=== PATIENT | female | born 1960 | race African-American/Black ===

== ENCOUNTER 2022-06-12 14:47 | Emergency (ER) | payer SELFPAY ==
[~2022-06-12] VITALS: Ht 167.6 cm; Wt 100.0 kg
[2022-06-12 15:15] VITALS: BP 127/95
== END 2022-06-12 16:46 | disposition left against medical advice (07) ==
LOC: ER 14:47
DX: R05.9 Cough, unspecified (principal); R22.0 Localized swelling, mass and lump, head; H92.09 Otalgia, unspecified ear; Z20.822 Contact with and (suspected) exposure to COVID-19; Z53.21 Procedure and treatment not carried out due to patient leaving prior to being seen by health care provider
CPT/HCPCS: 36415; 87426; 87804

== ENCOUNTER 2024-04-02 13:25 | Inpatient (IN) | payer OTHER, MEDICAID ==
[~2024-04-02] VITALS: Ht 167.6 cm; Wt 110.4 kg
[2024-04-02 14:12] LABS: Basophils # (auto) 0 10 ^3/uL (0-0.2); Eosinophils # (auto) 0.1 10 ^3/uL (0-0.8); Eosinophils % (auto) 1.8 % (0.0-7.0); Hematocrit 42.4 % (36.0-46.0); Hemoglobin 14.5 g/dL (12.2-16.2); Lymphocytes # (auto) 1.6 10 ^3/uL (0.4-5.4); Lymphocytes % (auto) 39.9 % (10.0-50.0); Mean Corpuscular Hemoglobin 31.6 pg (28.0-32.0); Mean Corpuscular Hgb Conc. 34.3 g/dL (32.0-36.0); Mean Corpuscular Volume 92.1 fL (80.0-100.0); Monocytes # (auto) 0.4 10 ^3/uL (0-1.3); Monocytes % (auto) 9.6 % (0.0-12.0); Neutrophils # (auto) 1.9 10 ^3/uL (1.6-8.6); Neutrophils % (auto) 47.7 % (37.0-80.0); Nucleated Red Blood Cells % 0.1 %; Platelet Count (auto) 114 10^3/uL (140-450)
[2024-04-02 14:28] LABS: Alanine Aminotransferase 39 U/L (7-40); Albumin 4.1 g/dL (3.2-4.8); Alkaline Phosphatase 140 U/L (46-116); Anion Gap 8 (5-15); Aspartate Aminotransferase 46 U/L (13-40); Bilirubin, Total 0.7 mg/dL (0.2-1.0); Blood Urea Nitrogen 6 mg/dL (9-23); Calcium 9.9 mg/dL (8.7-10.4); Carbon Dioxide 26 mmol/L (20-31); Chloride 106 mmol/L (98-107); Glucose 231 mg/dL (74-106); INR 1.13 (0.9-1.15); Magnesium 1.7 mg/dL (1.6-2.6); Potassium 3.3 mmol/L (3.5-5.1); Prothrombin Time 11.9 sec (9.3-11.8); Sodium 140 mmol/L (136-145); Total Protein 7.6 g/dL (5.7-8.2)
[2024-04-02] MEDS: FAMOTIDINE (10MG/ML) 2ML VL IV ONE (18:09)
[2024-04-02] MEDS: ONDANSETRON HCL 4 MG/2 ML VIAL IV ONE (18:10)
[2024-04-02] MEDS: MORPHINE SULFATE 4 MG/ML SYR/VIAL IV ONE (18:10)
[2024-04-02] MEDS: hydrALAZINE HCL 20 MG/ML VL IV ONE (18:10)
[2024-04-02 18:44] VITALS: PULSE 88; RESP 19; O2SAT 97
[2024-04-02 19:45] VITALS: PULSE 84; RESP 16; O2SAT 98
[2024-04-02] MEDS ORDERED: ACETAMINOPHEN 325 MG TAB PO PRN (22:00)
[2024-04-02] MEDS ORDERED: DEXTROSE (50%) 50ML SYRG IV PRN (22:00)
[2024-04-02] MEDS ORDERED: HYDROcodone-ACET 5/325MG TAB PO PRN (22:00)
[2024-04-02] MEDS: ATORVASTATIN 20 MG TAB PO SCH (22:16)
[2024-04-02] MEDS: POTASSIUM CHL 20 Meq TABLET PO ONE (22:16)
[2024-04-02] MEDS: METOPROLOL TARTRATE 25 MG TAB PO SCH (22:17)
[2024-04-02] MEDS: ACCU-CHEK COMFORT CURVE STRIP VI SCH (22:17)
[2024-04-02] MEDS: SODIUM CHLOR 0.9% PF (SALINE LOCK) 10ML VIAL/SYR IV SCH (22:17)
[2024-04-02] MEDS: levETIRAcetam 1000 mg/100ml 100 ML IV ONE (22:17)
[2024-04-02] MEDS: InsuLIN REG 1unit/0.01ml Soln (100units/ml) SC SCH (22:26)
[2024-04-02] MEDS ORDERED: MORPHINE SULFATE INJ 2 MG/ml SYRG IV PRN (23:30)
[2024-04-02] MEDS ORDERED: NITROGLYCERIN 0.4 MG SL TAB SL PRN (23:30)
[2024-04-03] VITALS (8 sets, daily range): BP systolic 133–184; BP diastolic 72–89; PULSE 18–85; RESP 16–18; TEMP 98–98.2; O2SAT 96–100
[2024-04-03] MEDS: MORPHINE SULFATE INJ 2 MG/ml SYRG IV PRN (00:56)
[2024-04-03] MEDS: KETOROLAC TROMETH 30 MG/ML 1ML VIAL IV ONE (02:29)
[2024-04-03] MEDS ORDERED: OXY5T PO (02:32)
[2024-04-03 06:09] LABS: Basophils # (auto) 0 10 ^3/uL (0-0.2); Basophils % (auto) 0.7 % (0.0-2.0); Eosinophils # (auto) 0.1 10 ^3/uL (0-0.8); Eosinophils % (auto) 2.9 % (0.0-7.0); Hematocrit 38.9 % (36.0-46.0); Lymphocytes % (auto) 45.9 % (10.0-50.0); Mean Corpuscular Hemoglobin 31.2 pg (28.0-32.0); Mean Corpuscular Hgb Conc. 33.5 g/dL (32.0-36.0); Mean Corpuscular Volume 93.1 fL (80.0-100.0); Monocytes # (auto) 0.5 10 ^3/uL (0-1.3); Monocytes % (auto) 11.3 % (0.0-12.0); Neutrophils # (auto) 1.7 10 ^3/uL (1.6-8.6); Neutrophils % (auto) 39.2 % (37.0-80.0); Nucleated Red Blood Cells % 0.2 %; Platelet Count (auto) 108 10^3/uL (140-450); Red Blood Cells 4.18 10^6/uL (4.0-5.20); Red Cell Distribution Width 14.4 % (11.8-14.3); White Blood Cell 4.4 10^3/uL (4.4-10.8)
[2024-04-03 06:12] LABS: Alanine Aminotransferase 35 U/L (7-40); Albumin 3.6 g/dL (3.2-4.8); Alkaline Phosphatase 102 U/L (46-116); Anion Gap 7 (5-15); Aspartate Aminotransferase 46 U/L (13-40); BUN/Creatinine Ratio 9.1 (10.0-20.0); Bilirubin, Total 1.2 mg/dL (0.2-1.0); Blood Urea Nitrogen 6 mg/dL (9-23); Calcium 9.3 mg/dL (8.7-10.4); Carbon Dioxide 26 mmol/L (20-31); Chloride 106 mmol/L (98-107); Glucose 141 mg/dL (74-106); Potassium 3.7 mmol/L (3.5-5.1); Sodium 139 mmol/L (136-145); Total Protein 6.6 g/dL (5.7-8.2)
[2024-04-03] MEDS: InsuLIN REG 1unit/0.01ml Soln (100units/ml) SC SCH (07:00)
[2024-04-03] MEDS: levETIRAcetam 1000 mg/100ml 100 ML IV SCH (10:16)
[2024-04-03] MEDS: FAMOTIDINE (10MG/ML) 2ML VL IV SCH (10:16)
[2024-04-03] MEDS: ASPirin 81 mg TAB PO SCH (10:16)
[2024-04-03] MEDS: hydrALAZINE HCL 20 MG/ML VL IV PRN (11:15)
[2024-04-03] MEDS: DOCUSATE SOD 100 MG CAP PO PRN (13:09)
[2024-04-03] MEDS: OXYCODONE W/ ACETAMINOPHEN 5/325MG TABLET PO PRN (13:10)
[2024-04-03 13:33] LABS: Urine Bacteria None Seen /hpf (None Seen)
[2024-04-03 14:07] LABS: Urine Blood Negative /uL (Negative); Urine Clarity Turbid (Clear); Urine Color Yellow (Yellow); Urine Hyaline Cast FEW /lpf (0 - 2); Urine Mucus FEW (None Seen); Urine Protein, UAD 1+ (Negative); Urine Specific Gravity 1.031 (1.001-1.035); Urine Urobilinogen Normal (Negative); Urine WBC 45 /hpf (0 - 5); Urine pH 5.5 (5.0-9.0)
[2024-04-03] MEDS ORDERED: ROPINIROLE 1 MG PO PRN (16:00)
[2024-04-03 17:04] LABS: Basophils # (auto) 0.1 10 ^3/uL (0-0.2); Basophils % (auto) 1.4 % (0.0-2.0); Eosinophils # (auto) 0.2 10 ^3/uL (0-0.8); Hematocrit 39.6 % (36.0-46.0); Hemoglobin 13.1 g/dL (12.2-16.2); Lymphocytes # (auto) 1.8 10 ^3/uL (0.4-5.4); Lymphocytes % (auto) 45.4 % (10.0-50.0); Mean Corpuscular Hemoglobin 30.4 pg (28.0-32.0); Mean Corpuscular Hgb Conc. 33.1 g/dL (32.0-36.0); Mean Corpuscular Volume 91.7 fL (80.0-100.0); Monocytes # (auto) 0.4 10 ^3/uL (0-1.3); Monocytes % (auto) 10.9 % (0.0-12.0); Neutrophils # (auto) 1.5 10 ^3/uL (1.6-8.6); Neutrophils % (auto) 38.3 % (37.0-80.0); Nucleated Red Blood Cells % 0.3 %; Platelet Count (auto) 117 10^3/uL (140-450); Red Blood Cells 4.31 10^6/uL (4.0-5.20); Red Cell Distribution Width 14.6 % (11.8-14.3)
[2024-04-03 17:17] LABS: INR 1.13 (0.9-1.15); Partial Thromboplastin Time 26.8 SEC (24.5-34.5); Prothrombin Time 11.9 sec (9.3-11.8)
[2024-04-03] MEDS ORDERED: DULA4.5I SC (17:25)
[2024-04-03] MEDS ORDERED: CLON0.1T PO (17:25)
[2024-04-03] MEDS ORDERED: LOS25T PO (17:25)
[2024-04-03] MEDS ORDERED: INSU1INJ15 SC (17:25)
[2024-04-03] MEDS ORDERED: ISOS1TAB28 PO (17:25)
[2024-04-03] MEDS ORDERED: ASPI1CHW5 PO (17:25)
[2024-04-03] MEDS ORDERED: LEVE100020 PO (17:25)
[2024-04-03] MEDS ORDERED: ATOR40TA52 PO (17:25)
[2024-04-03] MEDS ORDERED: METF-1145 PO (17:25)
[2024-04-03] MEDS ORDERED: HYDR25TA87 PO (17:25)
[2024-04-03] MEDS ORDERED: ROPI1TAB78 PO (17:25)
[2024-04-03] MEDS: CLOPIDOGREL BISULFATE 75 MG TAB PO ONE (17:34)
[2024-04-03] MEDS ORDERED: ZOLP10TA6 PO (17:52)
[2024-04-03] MEDS ORDERED: METF-489 PO (17:52)
[2024-04-03] MEDS: HEPARIN SODIUM (PORCINE) 5000 UNITS/ML 1ML VIAL IV ONE (18:21)
[2024-04-03] MEDS: HEPARIN DRIP/D5W 100UNITS/ML 250 ML IV SCH (18:35)
[2024-04-03 23:01] LABS: INR 1.13 (0.9-1.15); Partial Thromboplastin Time 26.1 SEC (24.5-34.5); Prothrombin Time 11.9 sec (9.3-11.8)
[2024-04-04] VITALS (9 sets, daily range): BP systolic 131–173; BP diastolic 62–80; PULSE 60–82; RESP 16–18; TEMP 97.6–99.1; O2SAT 89–98
[2024-04-04] MEDS: cefTRIAXone 1GM/50ML D5W 50 ML IV ONE (06:49)
[2024-04-04] MEDS ORDERED: CLOPIDOGREL BISULFATE 75 MG TAB PO SCH (10:00)
[2024-04-04] MEDS: levETIRAcetam 500 MG TAB PO SCH (10:30)
[2024-04-04] MEDS: hydrALAZINE HCL 20 MG/ML VL IV PRN (10:32)
[2024-04-04] MEDS: CLOPIDOGREL BISULFATE 75 MG TAB PO ONE (10:40)
[2024-04-04] MEDS: LORazepam 2MG/ML-1ML VIAL IM ONE (12:15)
[2024-04-04] MEDS: LORazepam 2MG/ML-1ML VIAL IV ONE (12:52)
[2024-04-04 12:59] LABS: Basophils # (auto) 0 10 ^3/uL (0-0.2); Basophils % (auto) 0.7 % (0.0-2.0); Eosinophils # (auto) 0.1 10 ^3/uL (0-0.8); Eosinophils % (auto) 3.2 % (0.0-7.0); Hematocrit 42.5 % (36.0-46.0); Hemoglobin 13.9 g/dL (12.2-16.2); Lymphocytes # (auto) 1.2 10 ^3/uL (0.4-5.4); Lymphocytes % (auto) 28.7 % (10.0-50.0); Mean Corpuscular Hemoglobin 30.3 pg (28.0-32.0); Mean Corpuscular Hgb Conc. 32.7 g/dL (32.0-36.0); Mean Corpuscular Volume 92.8 fL (80.0-100.0); Monocytes # (auto) 0.5 10 ^3/uL (0-1.3); Monocytes % (auto) 12.3 % (0.0-12.0); Neutrophils # (auto) 2.4 10 ^3/uL (1.6-8.6); Neutrophils % (auto) 55.1 % (37.0-80.0); Nucleated Red Blood Cells % 0.4 %; Platelet Count (auto) 122 10^3/uL (140-450); Red Blood Cells 4.58 10^6/uL (4.0-5.20); Red Cell Distribution Width 14.2 % (11.8-14.3); White Blood Cell 4.3 10^3/uL (4.4-10.8)
[2024-04-04 13:35] LABS: Erythrocyte Sedimentation Rate 17 mm/hr (0-20)
[2024-04-04] MEDS: NIFEdipine ER 30 MG TAB PO ONE (15:10)
[2024-04-04] MEDS ORDERED: cefTRIAXone 1GM/50ML D5W 50 ML IV SCH (21:00)
[2024-04-04] MEDS: ATORVASTATIN 20 MG TAB PO SCH (21:48)
[2024-04-04] MEDS: LABETALOL HCL 200 MG TAB PO ONE (22:10)
[2024-04-05] VITALS (10 sets, daily range): BP systolic 109–144; BP diastolic 54–77; PULSE 64–80; RESP 16–20; TEMP 97.9–98.9; O2SAT 94–98
[2024-04-05] MEDS: LABETALOL HCL 200 MG TAB PO SCH (06:00)
[2024-04-05] MEDS: CLOPIDOGREL BISULFATE 75 MG TAB PO SCH (10:21)
[2024-04-05] MEDS: NIFEdipine ER 30 MG TAB PO SCH (10:22)
[2024-04-05 16:52] LABS: LDL Cholesterol 51 mg/dL (< 100); Triglycerides 156 mg/dL (< 150)
[2024-04-05 16:54] LABS: Cholesterol 116 mg/dL (< 200); HDL Cholesterol 42 mg/dL (40-59)
[2024-04-05] MEDS: ONDANSETRON HCL 4 MG/2 ML VIAL IV PRN (21:45)
[2024-04-06 00:59] VITALS: BP 128/56; PULSE 68; RESP 20; TEMP 98; O2SAT 91
[2024-04-06 05:00] VITALS: BP 127/63; PULSE 64; RESP 20; TEMP 98.5; O2SAT 91
[2024-04-06] MEDS ORDERED: LABE200T10 PO (07:28)
[2024-04-06] MEDS ORDERED: NIFE1TAB31 PO (07:28)
[2024-04-06 07:30] VITALS: PULSE 73
[2024-04-06 09:00] VITALS: BP 103/44; PULSE 61; RESP 18; TEMP 97.8; O2SAT 98
[2024-04-06] MEDS ORDERED: HYDR25TA87 PO (10:27)
== END 2024-04-06 12:24 | disposition home or self-care (01) | DRG 305 ==
LOC: ER 13:39 → TELE 23:31 → TELE-WESTW 23:31
PROVIDERS: ADMIT Nurse Practitioner Family; ATTEND Student in an Organized Health Care Education/Training Program
PROC: 5A09357 Assistance with Respiratory Ventilation, Less than 24 Consecutive Hours, Continuous Positive Airway Pressure (ICD-10-PCS; principal; 2024-04-03)
DX: I16.0 Hypertensive urgency (principal); G81.94 Hemiplegia, unspecified affecting left nondominant side; E11.65 Type 2 diabetes mellitus with hyperglycemia; E78.5 Hyperlipidemia, unspecified; E87.6 Hypokalemia; G44.209 Tension-type headache, unspecified, not intractable; K74.60 Unspecified cirrhosis of liver; G40.909 Epilepsy, unspecified, not intractable, without status epilepticus; J44.9 Chronic obstructive pulmonary disease, unspecified; E66.01 Morbid (severe) obesity due to excess calories; I25.10 Atherosclerotic heart disease of native coronary artery without angina pectoris; G47.30 Sleep apnea, unspecified; D86.9 Sarcoidosis, unspecified; G43.809 Other migraine, not intractable, without status migrainosus; F17.200 Nicotine dependence, unspecified, uncomplicated; Z86.73 Personal history of transient ischemic attack (TIA), and cerebral infarction without residual deficits; Z79.82 Long term (current) use of aspirin; Z79.84 Long term (current) use of oral hypoglycemic drugs; Z79.899 Other long term (current) drug therapy; Z88.0 Allergy status to penicillin; Z91.041 Radiographic dye allergy status; Z82.49 Family history of ischemic heart disease and other diseases of the circulatory system; Z85.3 Personal history of malignant neoplasm of breast; Z90.710 Acquired absence of both cervix and uterus; Z88.8 Allergy status to other drugs, medicaments and biological substances; Z79.4 Long term (current) use of insulin; Z68.38 Body mass index [BMI] 38.0-38.9, adult
CPT/HCPCS: 36415; 70450; 70551; 71045; 80053; 80061; 81001; 82962; 83036; 83735; 83880; 84484; 85025; 85610; 85652; 85730; 93005; 93306; 93886; 94660; 97163; G0378; J1815; J1885; J2405; J3490

== ENCOUNTER 2024-05-27 14:34 | Emergency (ER) | payer MEDICARE, MEDICAID ==
[~2024-05-27] VITALS: Ht 162.6 cm; Wt 100.0 kg
[~2024-05-27 14:34] MED LIST: ASPI1CHW5 PO; ATOR40TA52 PO; DULA4.5I SC; HYDR25TA87 PO; INSU1INJ15 SC; ISOS1TAB28 PO; LABE200T10 PO; LEVE100020 PO; METF-489 PO; NIFE1TAB31 PO; OXY5T PO; ROPI1TAB78 PO; ZOLP10TA6 PO
[2024-05-27 16:05] VITALS: PULSE 64; RESP 16; O2SAT 96
[2024-05-27] MEDS: levETIRAcetam 1000 mg/100ml 100 ML IV ONE (16:06)
[2024-05-27 16:09] LABS: Basophils # (auto) 0.1 10 ^3/uL (0-0.2); Eosinophils # (auto) 0.1 10 ^3/uL (0-0.8); Eosinophils % (auto) 1.5 % (0.0-7.0); Hematocrit 43.6 % (36.0-46.0); Hemoglobin 14.5 g/dL (12.2-16.2); Lymphocytes # (auto) 1.9 10 ^3/uL (0.4-5.4); Lymphocytes % (auto) 35.1 % (10.0-50.0); Mean Corpuscular Hemoglobin 30.4 pg (28.0-32.0); Mean Corpuscular Hgb Conc. 33.3 g/dL (32.0-36.0); Mean Corpuscular Volume 91.3 fL (80.0-100.0); Monocytes # (auto) 0.6 10 ^3/uL (0-1.3); Neutrophils # (auto) 2.7 10 ^3/uL (1.6-8.6); Neutrophils % (auto) 51.4 % (37.0-80.0); Nucleated Red Blood Cells % 0.2 %; Platelet Count (auto) 125 10^3/uL (140-450); Red Blood Cells 4.77 10^6/uL (4.0-5.20); Red Cell Distribution Width 14.3 % (11.8-14.3); White Blood Cell 5.3 10^3/uL (4.4-10.8)
[2024-05-27] MEDS: ONDANSETRON HCL 4 MG/2 ML VIAL IV ONE (16:10)
[2024-05-27] MEDS: MORPHINE SULFATE 4 MG/ML SYR/VIAL IV ONE (16:11)
[2024-05-27 16:18] LABS: Sodium 143 mmol/L (136-145)
[2024-05-27 16:19] LABS: Anion Gap 6 (5-15); Calcium 10.2 mg/dL (8.7-10.4); Carbon Dioxide 29 mmol/L (20-31)
[2024-05-27 16:24] LABS: BUN/Creatinine Ratio 12.2 (10.0-20.0)
[2024-05-27 16:25] LABS: Blood Urea Nitrogen 9 mg/dL (9-23); Chloride 108 mmol/L (98-107); Glucose 121 mg/dL (74-106); Potassium 3.3 mmol/L (3.5-5.1)
--- NOTE | 2024-05-27 16:48 | DVH ---
EXAM: CT HEAD WITHOUT CONTRAST HISTORY: hearn COMPARISON: MRI BRAIN HEAD WO CONTRAST on DOS: 04/04/24, CT HEAD WITHOUT CONTRAST on DOS: 04/03/24 TECHNIQUE: Axial images of the head were obtained and reformatted in coronal and sagittal planes. All CT scans at this medical facility are performed using dose modulation techniques as appropriate t o a performed exam including the following: Automated exposure control was utilized; adjustment of th e MA and/or KV according to patient size; and use of iterative reconstruction technique. CT Dose: CTDI volume is 54 mGy. Dose-length product is 864 mGy*cm FINDINGS: There is no evidence of acute intracranial hemorrhage, mass, mass effect midline shift. There is no h ydrocephalus or extra-axial fluid collection. Read-white matter differentiation is maintained.. The visualized paranasal sinuses and mastoid air cells are clear. The calvarium is intact. IMPRESSION: 1. No acute intracranial process. HS:Y
[2024-05-27] MEDS: oxyCODONE ER 10 MG TAB PO ONE (17:41)
[2024-05-27] MEDS: cloNIDine HCL 0.1 MG TAB PO ONE (17:42)
--- NOTE | 2024-05-27 18:10 | ED.PDOC ---
History of Present Illness HPI Comments 64-year-old female who comes in with chief complaint of seizure today. The patient has a history of seizures and states that her last seizure was January of this year. The patient currently does not have a neurologist but does have a primary care doctor. She states that today the seizure was tonic-clonic in nature and lasted approximately 3 minutes. The patient was postictal for approximately 15 minutes and upon being transported to our facility, the patient was now alert and oriented and able to answer all questions. The patient had the seizure in a wheelchair so there was no type of trauma. She did come in with a headache and states that the headache is about a 9/10. She denies any nausea vomiting or diarrhea. We did speak with her primary care doctor who said that the patient has been somewhat hypertensive over the past several weeks. The patient's blood pressure was 212/120 at the facility that she came from. The patient was accompanied in the emergency department's by her . Chief Complaint: Seizure Time Seen by MD: 15:16 Primary Care Provider: Arabella Reviewed Notes: Nurses Notes, Police Patrol Officer Notes, Medications, Allergies (Allergies listed above) Allergies: Coded Allergies: Iodine (Verified Allergy, Severe, 04/02/24) Penicillins (Verified Allergy, Intermediate, Hives, 04/03/24) Acetaminophen (Verified Allergy, Unknown, 05/27/24) Uncoded Allergies: CONTRAST (Allergy, Severe, 04/02/24) Home Meds Active Scripts Hydralazine HCl (Hydralazine HCl) 25 Mg Tab, 1 TAB PO TIDPRN PRN for 30 Days, #90 TAB take sBP>170 Prov:ROBERT BOLTON MD 04/06/24 Nifedipine (Nifedipine Er) 30 Mg Tab, 60 MG PO DAILY for 60 Days, #120 TAB Prov:ROBERT BOLTON MD 04/06/24 Labetalol HCl (Labetalol HCl) 200 Mg Tab, 200 MG PO TID for 60 Days, #180 TAB Prov:ROBERT BOLTON MD 04/06/24 Reported Medications Zolpidem Tartrate (Zolpidem Tartrate) 10 Mg Tab, 10 MG PO HS PRN for FOR INSOMNIA, TAB 04/03/24 Metformin Hydrochloride (METFORMIN HCL ER) 500 Mg Tab, 500 MG PO DAILY@DINNER, TAB 04/03/24 Isosorbide Mononitrate (Isosorbide Mononitrate Er) 30 Mg Tab, 1 TAB PO DAILY 04/03/24 Ropinirole Hydrochloride (Ropinirole Hcl) 1 Mg Tab, 1 TAB PO QPM 04/03/24 Insulin Regular (Human) (Humulin R U-500 Kwikpen) 500 Unit/Ml Inj, SC 04/03/24 Atorvastatin Calcium (ATORVASTATIN CALCIUM) 40 Mg Tab, 1 TAB PO DAILY 04/03/24 Levetiracetam (Levetiracetam) 1,000 Mg Tab, 1 TAB PO BID 04/03/24 Aspirin (Chewable Aspirin) 81 Mg Chw, 1 TAB PO DAILY 04/03/24 Dulaglutide (Trulicity) 4.5 Mg/0.5 Ml Inj, 4.5 MG SC QWEEKLY 04/03/24 Oxycodone Hcl (OXYCODONE HCL) 5 Mg Tb, 10 MG PO TID PRN for PAIN SCALE 1 THRU 6, TAB 04/03/24 Information Source: Patient, Emergency Med Personnel Mode of Arrival: EMS Severity: Moderate Timing: Minutes Duration: Intermittent Prehospital treatment: Licensed Acupuncturist, IVF Location: Generalized headache Past Medical History PAST MEDICAL HISTORY: Cancer (History of breast cancer), CHF, COPD, CVA, DM, HTN, CA, Seizures Past Medical History (Other): Bone dysplasia, sleep apnea, sarcoidosis, fibromuscular dysplasia Surgical History: , Hysterectomy Surgical History (Other): Left breast removal from cancer RANCH HELPER History: Denies all RANCH HELPER Hx Family History Family History: Family hx of Cancer, Family hx of heart johnny Social History Smoker: Non-Smoker Alcohol: Denies ETOH Use Drugs: Marijuana Lives In: Home Constitutional: denies: chills, diaphoresis, fatigue, fever, malaise, sweats, weakness, others Respiratory: denies: cough, hemoptysis, orthopnea, SOB at rest, shortness of breath, SOB with excertion, stridor, wheezing, others Cardiovascular: denies: chest pain, dizzy spells, diaphoresis, Dyspnea on exertion, edema, irregular heart beat, left arm pain, lightheadedness, palpita tions, PND, syncope, others Gastrointestinal: denies: abdomen distended, abdominal pain, blood streaked jelly wels, constipated, diarrhea, dysphagia, difficulty swallowing, hematemesis, melena, nausea, poor appetite, poor fluid intake, rectal bleeding, rectal pain, vomiting, others Genitourinary: denies: abnormal vagina bleeding, burning, dyspareunia, dysuria, flank pain, frequency, hematuria, incontinence, pain, , vagina discharge, urgency, others Neurological: reports: headache, seizure; denies: dizziness, fainting, left sided numbness, left sided weakness, numbness, paresthesia, pre-existing deficit, right sided numbness, right sided weakness, speech problems, tingling, tremors, weakness, others Musculoskeletal: denies: back pain, gout, joint pain, joint swelling, muscle pain, muscle stiffness, neck pain, others Integumetry: denies: bruises, change in color, change in hair/nails, dryness, laceration, lesions, lumps, rash, wounds, others Allergic/Immunocompromised: denies: Difficulty Healing, Frequent Infections, Hives, Itching, others Hematologic/Lymphatic: denies: anemia, blood clots, easy bleeding, easy bruising, swollen glands, others Endocrine: denies: excessive hunger, excessive sweating, excessive thirst, excessive urination, flushing, intolerance to cold, intolerance to heat, unexpla ined weight gain, unexplained weight loss, others Psychiatric: denies: anxiety, bipolar disorder, depression, hopeless, panic disorder, schizophrenia, sleepless, suicidal, others Physical Exam General Appearance: Mild Distress HEENT: Normal ENT Inspection, Pharynx Normal, TMs Normal Neck: Full Range of Motion, Non-Tender, Normal, Normal Inspection Respiratory: Chest Non-Tender, Lungs Clear, No Accessory Muscle Use, No Respiratory Distress, Normal Breath Sounds Cardiovascular: No Edema, No JVD, No Murmur, No Gallop, Normal Peripheral Pulses, Regular Rate/Rhythm Breast Exam: Deferred Gastrointestinal: No Organomegaly, Non Tender, No Pulsatile Mass, Normal Bowel Sounds, Soft Genitalia: Deferred Pelvic: Deferred Rectal: Deferred Extremities: No calf tenderness, Normal capillary refill, No pedal edema Musculoskeletal : Apperance: Normal Neurologic: Alert, inspector aligning II-XII nml as Tested, Motor Weakness, Normal Affect, Normal Mood, No Sensory Deficits Cerebellar Function: Normal Reflexes: Normal Skin: Dry, Normal Color, Warm Lymphatic: No Adenopathy Was a procedure done? Was a procedure done?: No Differential Dx Considerations may include: Generalized weakness, seizures, generalized weakness, sepsis, UTI X-Ray, Labs, Meds, VS Vital Signs Date Time Temp Pulse Resp B/P (MAP) Pulse Ox O2 Delivery O2 Flow Rate FiO2 05/27/24 17:42 190/88 05/27/24 17:32 64 18 190/88 05/27/24 16:11 73 12 20389 05/27/24 16:11 73 12 (127) 96 05/27/24 16:05 64 16 96 Room Air* 0 21 05/27/24 14:34 98.1 71 16 201/98 (132) 97 98.1 05/27/24 14:34 98.1 71 16 201/98 (132) 97 Lab Test 05/27/24 15:54 Range/Units White Blood Count 5.3 4.4-10.8 10^3/uL Red Blood Count 4.77 4.0-5.20 10^6/uL Hemoglobin 14.5 12.2-16.2 g/dL Hematocrit 43.6 36.0-46.0 % Mean Corpuscular Volume 91.3 80.0-100.0 fL Mean Corpuscular Hemoglobin 30.4 28.0-32.0 pg Mean Corpuscular Hemoglobin Concent 33.3 32.0-36.0 g/dL Red Cell Distribution Width 14.3 11.8-14.3 % Platelet Count 125 L 140-450 10^3/uL Mean Platelet Volume 10.1 6.9-10.8 fL Neutrophils (%) (Auto) 51.4 37.0-80.0 % Lymphocytes (%) (Auto) 35.1 10.0-50.0 % Monocytes (%) (Auto) 11.0 0.0-12.0 % Eosinophils (%) (Auto) 1.5 0.0-7.0 % Basophils (%) (Auto) 1.0 0.0-2.0 % Neutrophils # (Auto) 2.7 1.6-8.6 10 ^3/uL Lymphocytes # (Auto) 1.9 0.4-5.4 10 ^3/uL Monocytes # (Auto) 0.6 0-1.3 10 ^3/uL Eosinophils # (Auto) 0.1 0-0.8 10 ^3/uL Basophils # (Auto) 0.1 0-0.2 10 ^3/uL Nucleated Red Blood Cells 0.2 % Sodium Level 143 136-145 mmol/L Potassium Level 3.3 L 3.5-5.1 mmol/L Chloride Level 108 H 98-107 mmol/L Carbon Dioxide Level 29 20-31 mmol/L Anion Gap 6 5-15 Blood Urea Nitrogen 9 9-23 mg/dL Creatinine 0.74 0.550-1.02 mg/dL Glomerular Filtration Rate Calc 89 >90 mL/min BUN/Creatinine Ratio 12.2 10.0-20.0 Serum Glucose 121 H 74-106 mg/dL Calcium Level 10.2 8.7-10.4 mg/dL Magnesium Level 1.9 1.6-2.6 mg/dL Current Medications Medications (Trade) Dose Ordered Sig/Maycol Route Start Time Stop Time Status Last Admin Morphine Sulfate 4 mg ONCE ONCE IV 05/27/24 15:45 05/27/24 15:46 DC 05/27/24 16:11 Ondansetron HCl (Zofran) 4 mg ONCE ONCE IV 05/27/24 15:45 05/27/24 15:46 DC 05/27/24 16:10 Levetiracetam 100 ml @ 400 mls/hr ONCE ONCE IV 05/27/24 15:45 05/27/24 15:59 DC 05/27/24 16:06 Oxycodone HCl (OxyCONTIN ER Tablet) 10 mg ONCE ONCE PO 05/27/24 17:30 05/27/24 17:32 DC 05/27/24 17:41 Clonidine HCl (Catapres Tablet) 0.1 mg ONCE ONCE PO 05/27/24 17:45 05/27/24 17:46 DC 05/27/24 17:42 CT scan of the head is negative Given morphine 4 mg IV push for the pain The patient was given Zofran for the nausea The patient states that the pain is persistent so we did give her oxycodone The patient was given Keppra 1 g IV piggyback The patient's blood pressure was still somewhat elevated so was given clonidine 0.1 mg by mouth The patient's CBC and chemistry panel are within normal limits. The patient's blood pressure has somewhat decreased so we are going to discharge the patient We did speak with her primary care doctor (Dr. Lane) and he was going to set her up with a neurology appointment. Images Reviewed?: Images reviewed and evaluated by me Time of 1ST Reevaluation: 18:08 Reevaluation 1ST: Improved Patient Education/Counseling: Diagnosis, Treatment, Prognosis, Need For Follow Up Family Education/Counseling: Diagnosis, Treatment, Prognosis, Need For Follow Up Departure 1 Departure Time of Disposition: 18:09 Impression: Primary Impression: Seizure Disposition: 01 HOME / SELF CARE / HOMELESS Condition: Fair Discharged With: Self Critical Care Note Critical Care Time?: No Stability Stability form required: No Heart Score Heart Score: Heart Score Response (Comments) Value History N/A 0 EKG N/A 0 Age N/A 0 Risk Factors N/A 0 Troponin N/A 0 Total 0 ALIZE MANN MD May 27, 2024 18:10
[2024-05-27 18:57] VITALS: BP 163/70; PULSE 82; RESP 15; TEMP 98.6; O2SAT 94
== END 2024-05-27 19:37 | disposition home or self-care (01) ==
LOC: EDBD 14:34 → EDUNIT# 14:34 → ER 14:34
DX: R56.9 Unspecified convulsions (principal); I11.0 Hypertensive heart disease with heart failure; I50.9 Heart failure, unspecified; F12.10 Cannabis abuse, uncomplicated; E11.9 Type 2 diabetes mellitus without complications; J44.9 Chronic obstructive pulmonary disease, unspecified; Z90.710 Acquired absence of both cervix and uterus; Z79.82 Long term (current) use of aspirin; Z79.84 Long term (current) use of oral hypoglycemic drugs; Z79.85 Long-term (current) use of injectable non-insulin antidiabetic drugs; Z79.899 Other long term (current) drug therapy; Z85.3 Personal history of malignant neoplasm of breast; Z86.73 Personal history of transient ischemic attack (TIA), and cerebral infarction without residual deficits; Z88.0 Allergy status to penicillin; Z88.8 Allergy status to other drugs, medicaments and biological substances; Z91.041 Radiographic dye allergy status
CPT/HCPCS: 36415; 70450; 80048; 83735; 85025; 96365; 96375; 99285; J1953; J2270; J2405

== ENCOUNTER 2024-06-01 14:11 | Emergency (ER) | payer MEDICARE, MEDICAID ==
[~2024-06-01] VITALS: Ht 167.6 cm; Wt 100.0 kg
--- NOTE | 2024-06-01 15:13 | DVH ---
Chest x-ray Technique: AP view Comparison: 04/02/2020 CLINICAL INDICATION: Shortness of breath FINDINGS: Heart size borderline with left ventricular configuration. Aorta tortuous. No infiltrates or effusions. IMPRESSION: 1. No acute infiltrates
--- NOTE | 2024-06-01 15:21 | DVH ---
CLINICAL INFORMATION: 64 years old, Female; low back pain. Rule out discitis/osteomyelitis. TECHNIQUE: Axial CT images of the lumbar spine were obtained without IV contrast. Coronal and sagitt al reformatted images were obtained, reviewed, and stored. One or more of the following dose reducti on techniques were used: Automated exposure control. Adjustment of mA and/or kV according to patient size. CTDIvol = 38.87, 0.41, 0.07 mGy DLP = 1153.54 right mGy-cm COMPARISON: None. FINDINGS: Vertebral body alignment is within normal limits. Vertebral body heights are maintained. Posterior el ements are intact. No acute fracture. Paraspinal soft tissues are unremarkable. 4 mm nonobstructing calculus incidentally noted in the inferior pole of the right kidney. Lumbar disc levels: L1-L2: No significant disc/facet abnormality. No significant spinal canal or neural foraminal stenosi s. L2-L3: No significant disc abnormality or spinal canal stenosis. Facet hypertrophy with [id number] ate bilateral neural foraminal stenoses. L3-L4: Posterior disc osteophyte complex causes moderate spinal canal stenosis. Facet hypertrophy wit h severe right moderate to severe left neural foraminal stenoses. Encroachment of the right neural fo ramen by right foraminal disc protrusion contributes to the right neural foraminal stenosis. There is calcification associated with the disc protrusion. L4-L5: Diffuse disc bulge mildly indenting the ventral aspect of the thecal sac. Mild spinal canal st enosis. Facet hypertrophy with moderate to severe bilateral neural foraminal stenoses. L5-S1: Mild disc space narrowing. No significant disc bulge or spinal canal stenosis. Facet hypertro phy with moderate bilateral neural foraminal stenoses. IMPRESSION: 1. No evidence of acute fracture or spondylolisthesis. 2. No findings are seen to suggest discitis/ osteomyelitis on CT. If there is clinical concern for di scitis/osteomyelitis, MRI could be obtained. 3. Degenerative disc disease and facet disease in the lumbar spine with associated spinal canal, suba rticular, and neural foraminal stenoses as detailed above. 4. Additional findings as described above
[2024-06-01 15:32] LABS: Chloride 104 mmol/L (98-107); Potassium 3.5 mmol/L (3.5-5.1); Sodium 138 mmol/L (136-145)
[2024-06-01 15:33] LABS: Anion Gap 7 (5-15); Calcium 10.2 mg/dL (8.7-10.4); Carbon Dioxide 27 mmol/L (20-31)
[2024-06-01 15:37] LABS: Uric Acid 3.6 mg/dL (3.1-7.8)
[2024-06-01 15:38] LABS: BUN/Creatinine Ratio 9.7 (10.0-20.0)
[2024-06-01 15:40] LABS: Blood Urea Nitrogen 6 mg/dL (9-23); Glucose 136 mg/dL (74-106)
--- NOTE | 2024-06-01 15:50 | DVH ---
Left lower extremity venous duplex Clinical History: L calf pain Comparison: None Technique: Duplex Doppler evaluation of the deep venous system of the left lower extremity from the c ommon femoral vein to the popliteal vein including color Doppler and spectral/pulsed waveform analysi s was performed. Findings: The common femoral vein demonstrates appropriate compressibility and waveform variability. There is compressibility/patency of the great saphenous vein at the proximal thigh. The femoral vein demonstrates appropriate compressibility and waveform variability. The deep femoral vein demonstrates appropriate compressibility and waveform variability. The popliteal vein demonstrates appropriate compressibility and waveform variability. There is normal compressibility at the tibioperoneal trunk. Impression: 1. No left femoropopliteal venous thrombosis. 2. If clinical concern/symptoms persist or worsen, short-interval follow-up study is suggested. HS:Y
[2024-06-01 16:00] LABS: Basophils # (auto) 0.1 10 ^3/uL (0-0.2); Basophils % (auto) 1.1 % (0.0-2.0); Eosinophils # (auto) 0.1 10 ^3/uL (0-0.8); Eosinophils % (auto) 2.2 % (0.0-7.0); Erythrocyte Sedimentation Rate 33 mm/hr (0-20); Hematocrit 41.9 % (36.0-46.0); Hemoglobin 14.1 g/dL (12.2-16.2); Lymphocytes % (auto) 39.1 % (10.0-50.0); Mean Corpuscular Hemoglobin 30.8 pg (28.0-32.0); Mean Corpuscular Hgb Conc. 33.7 g/dL (32.0-36.0); Mean Corpuscular Volume 91.4 fL (80.0-100.0); Monocytes # (auto) 0.5 10 ^3/uL (0-1.3); Monocytes % (auto) 10.6 % (0.0-12.0); Neutrophils # (auto) 2.4 10 ^3/uL (1.6-8.6); Nucleated Red Blood Cells % 0.1 %; Platelet Count (auto) 133 10^3/uL (140-450); Red Blood Cells 4.58 10^6/uL (4.0-5.20); Red Cell Distribution Width 14.5 % (11.8-14.3); White Blood Cell 5.2 10^3/uL (4.4-10.8)
[2024-06-01] MEDS: ONDANSETRON HCL 4 MG/2 ML VIAL IV ONE (16:10)
[2024-06-01] MEDS: MORPHINE SULFATE 4 MG/ML SYR/VIAL IV ONE (16:10)
[2024-06-01 16:16] VITALS: PULSE 79; RESP 17; O2SAT 96
[2024-06-01 17:11] LABS: Urine Bacteria None Seen /hpf (None Seen)
[2024-06-01 17:32] LABS: Urine Blood Negative /uL (Negative); Urine Clarity Clear (Clear); Urine Color Light-Yellow (Yellow); Urine Protein, UAD Negative (Negative); Urine Specific Gravity 1.013 (1.001-1.035); Urine Urobilinogen Normal (Negative); Urine WBC 3 /hpf (0 - 5)
[2024-06-01] MEDS ORDERED: HYDROmorphone HCL 2 MG/ML VL/or syr IV ONE (18:15)
[2024-06-01] MEDS ORDERED: DexAMETHasone SOD PHOS 10MG/1ML VIAL INJ IV ONE (18:15)
--- NOTE | 2024-06-01 18:25 | ED.PDOC ---
History of Present Illness HPI Comments 64 year old female presents to the ED with chief complaint of back pain and fever. Patient reports she is coming from Dr. Askew's office for concern of left sided lower back pain that radiates down her left leg and with associated fever of 103F that started over the weekend. Patient relays that she has history of degenerative disc disease, but her doctor is concerned for a spinal infection and her leg pain being due to a DVT, wanting further evaluation for both. Patient denies any N/V, numbness, weakness, dizziness, chest pain, or SOB. I discussed the case with Dr. Askew by phone, who requested lumbar CT, DVT workup, sed rate, cultures and uric acid level. Chief Complaint: Body Pain Time Seen by MD: 18:22 Primary Care Provider: Arabella Reviewed Notes: Nurses Notes, Medications, Allergies Allergies: Coded Allergies: Iodine (Verified Allergy, Severe, 04/02/24) Penicillins (Verified Allergy, Intermediate, Hives, 04/03/24) Acetaminophen (Verified Allergy, Unknown, 05/27/24) Uncoded Allergies: CONTRAST (Allergy, Severe, 04/02/24) Home Meds Active Scripts Hydralazine HCl (Hydralazine HCl) 25 Mg Tab, 1 TAB PO TIDPRN PRN for 30 Days, #90 TAB take sBP>170 Prov:ROBERT BOLTON MD 04/06/24 Nifedipine (Nifedipine Er) 30 Mg Tab, 60 MG PO DAILY for 60 Days, #120 TAB Prov:ROBERT BOLTON MD 04/06/24 Labetalol HCl (Labetalol HCl) 200 Mg Tab, 200 MG PO TID for 60 Days, #180 TAB Prov:ROBERT BOLTON MD 04/06/24 Reported Medications Zolpidem Tartrate (Zolpidem Tartrate) 10 Mg Tab, 10 MG PO HS PRN for FOR INSOMNIA, TAB 04/03/24 Metformin Hydrochloride (METFORMIN HCL ER) 500 Mg Tab, 500 MG PO DAILY@DINNER, TAB 04/03/24 Isosorbide Mononitrate (Isosorbide Mononitrate Er) 30 Mg Tab, 1 TAB PO DAILY 04/03/24 Ropinirole Hydrochloride (Ropinirole Hcl) 1 Mg Tab, 1 TAB PO QPM 04/03/24 Insulin Regular (Human) (Humulin R U-500 Kwmarypen) 500 Unit/Ml Inj, SC 04/03/24 Atorvastatin Calcium (ATORVASTATIN CALCIUM) 40 Mg Tab, 1 TAB PO DAILY 04/03/24 Levetiracetam (Levetiracetam) 1,000 Mg Tab, 1 TAB PO BID 04/03/24 Aspirin (Chewable Aspirin) 81 Mg Chw, 1 TAB PO DAILY 04/03/24 Dulaglutide (Trulicity) 4.5 Mg/0.5 Ml Inj, 4.5 MG SC QWEEKLY 04/03/24 Oxycodone Hcl (OXYCODONE HCL) 5 Mg Tb, 10 MG PO TID PRN for PAIN SCALE 1 THRU 6, TAB 04/03/24 Information Source: Patient Mode of Arrival: Wheelchair Severity: Moderate Timing: Hours Duration: Since onset Prehospital treatment: None Past Medical History PAST MEDICAL HISTORY: Cancer, CHF, COPD, CVA, DM, HTN, KS, Seizures Past Medical History (Other): FMD Surgical History: , Hysterectomy [employer]LL[employer] OFFICER History: Denies all [employer]TELL[employer] OFFICER Hx Family History Family History: Family hx of Cancer, Family hx of heart johnny Social History Smoker: Non-Smoker Alcohol: Denies ETOH Use Drugs: Marijuana Lives In: Home Constitutional: reports: fever; denies: chills, diaphoresis, fatigue, malaise, sweats, weakness, others EENTM: denies: blurred vision, double vision, ear bleeding, ear discharge, ear drainage, ear pain, ear ringing, eye pain, eye redness, hearing loss, mouth p ain, mouth swelling, nasal discharge, nose bleeding, nose congestion, nose pain, photophobia, tearing, throat pain, throat swelling, voice changes, others Respiratory: denies: cough, hemoptysis, orthopnea, SOB at rest, shortness of br eath, SOB with excertion, stridor, wheezing, others Cardiovascular: denies: chest pain, dizzy spells, diaphoresis, Dyspnea on exertion, edema, irregular heart beat, left arm pain, lightheadedness, palpitations, PND, syncope, others Gastrointestinal: denies: abdomen distended, abdominal pain, blood streaked bowels, constipated, diarrhea, dysphagia, difficulty swallowing, hematemesis, melena, nausea, poor appetite, poor fluid intake, rectal bleeding, rectal pain, vomiting, others Genitourinary: denies: abnormal vagina bleeding, burning, dyspareunia, dysuria, flank pain, frequency, hematuria, incontinence, pain, , vagina discharge, urgency, others Neurological: denies: dizziness, fainting, headache, left sided numbness, left sided weakness, numbness, paresthesia, pre-existing deficit, right sided numbness, right sided weakness, seizure, speech problems, tingling, tremors, weakness, others Musculoskeletal: reports: back pain, others (Left leg pain); denies: gout, joint pain, joint swelling, muscle pain, muscle stiffness, neck pain Integumetry: denies: bruises, change in color, change in hair/nails, dryness, laceration, lesions, lumps, rash, wounds, others Allergic/Immunocompromised: denies: Difficulty Healing, Frequent Infections, Hives, Itching, others Hematologic/Lymphatic: denies: anemia, blood clots, easy bleeding, easy bruising, swollen glands, others Endocrine: denies: excessive hunger, excessive sweating, excessive thirst, excessive urination, flushing, intolerance to cold, intolerance to heat, unexplained weight gain, unexplained weight loss, others Psychiatric: denies: anxiety, bipolar disorder, depression, hopeless, panic disorder, schizophrenia, sleepless, suicidal, others All Other Systems: Reviewed and Negative Physical Exam General Appearance: Mild Distress HEENT: Other (Unremarkable IV) Neck: Full Range of Motion, Normal Inspection Respiratory: Lungs Clear, No Accessory Muscle Use, No Respiratory Distress, Normal Breath Sounds Cardiovascular: No Edema, No JVD, Regular Rate/Rhythm Breast Exam: Deferred Gastrointestinal: Non Tender, Soft Genitalia: Deferred Pelvic: Deferred Rectal: Deferred Extremities: Normal inspection, No pedal edema, Other (Midline and left paraspinal lumbar tenderness to palpation) Neurologic: Alert (Oriented x4 ), Normal Affect, Normal Mood, Other (Moves all extremities. No gross focal deficit.) Cerebellar Function: NOT DONE Reflexes: NOT DONE Skin: Dry, Normal Color, Warm Lymphatic: NOT DONE Was a procedure done? Was a procedure done?: No Differential Dx Considerations may include: Musculoskeletal pain, degenerative disc disease with neuropathy, diskitis, osteomyelitis, infection such as viral syndrome, bronchitis, pneumonia, UTI, among others X-Ray, Labs, Meds, VS Vital Signs Date Time Temp Pulse Resp B/P (MAP) Pulse Ox O2 Delivery O2 Flow Rate FiO2 06/01/24 18:54 98.5 80 20 156/94 (114) 93 98.5 06/01/24 16:16 79 17 96 Room Air* 0 21 06/01/24 16:10 79 17 161/87 06/01/24 16:06 98.7 79 17 161/87 (111) 96 98.7 06/01/24 16:06 79 17 96 Room Air 06/01/24 14:29 98.8 80 19 174/77 (109) 96 Lab Test 06/01/24 17:09 06/01/24 14:55 Range/Units Urine Color Light-yellow Yellow Urine Clarity Clear Clear Urine pH 5.0 5.0-9.0 Urine Specific [place] 1.013 1.001-1.035 Urine Protein Negative Negative Urine Ketones Negative Negative Urine Blood Negative Negative /uL Urine Nitrite Negative Negative Urine Bilirubin Negative Negative Urine Urobilinogen Normal Negative mg/dL Urine Leukocyte Esterase Negative Negative /uL Urine RBC 1 0 - 4 /hpf Urine WBC 3 0 - 5 /hpf Urine Squamous Epithelial Cells Few <5 /hpf Urine Bacteria None seen None Seen /hpf Urine Glucose Normal Normal mg/dL White Blood Count 5.2 4.4-10.8 10^3/uL Red Blood Count 4.58 4.0-5.20 10^6/uL Hemoglobin 14.1 12.2-16.2 g/dL Hematocrit 41.9 36.0-46.0 % Mean Corpuscular Volume 91.4 80.0-100.0 fL Mean Corpuscular Hemoglobin 30.8 28.0-32.0 pg Mean Corpuscular Hemoglobin Concent 33.7 32.0-36.0 g/dL Red Cell Distribution Width 14.5 H 11.8-14.3 % Platelet Count 133 L 140-450 10^3/uL Mean Platelet Volume 11.0 H 6.9-10.8 fL Neutrophils (%) (Auto) 47.0 37.0-80.0 % Lymphocytes (%) (Auto) 39.1 10.0-50.0 % Monocytes (%) (Auto) 10.6 0.0-12.0 % Eosinophils (%) (Auto) 2.2 0.0-7.0 % Basophils (%) (Auto) 1.1 0.0-2.0 % Neutrophils # (Auto) 2.4 1.6-8.6 10 ^3/uL Lymphocytes # (Auto) 2.0 0.4-5.4 10 ^3/uL Monocytes # (Auto) 0.5 0-1.3 10 ^3/uL Eosinophils # (Auto) 0.1 0-0.8 10 ^3/uL Basophils # (Auto) 0.1 0-0.2 10 ^3/uL Nucleated Red Blood Cells 0.1 % Erythrocyte Sedimentation Rate 33 H 0-20 mm/hr D-Dimer, Quantitative 0.74 H 0.0-0.49 mg/L FEU Sodium Level 138 # 136-145 mmol/L Potassium Level 3.5 3.5-5.1 mmol/L Chloride Level 104 98-107 mmol/L Carbon Dioxide Level 27 20-31 mmol/L Anion Gap 7 5-15 Blood Urea Nitrogen 6 L 9-23 mg/dL Creatinine 0.62 0.550-1.02 mg/dL Glomerular Filtration Rate Calc 98 >90 mL/min BUN/Creatinine Ratio 9.7 L 10.0-20.0 Serum Glucose 136 H 74-106 mg/dL Lactic Acid Level 1.4 0.4-2.0 mmol/L Uric Acid 3.6 3.1-7.8 mg/dL Calcium Level 10.2 8.7-10.4 mg/dL Current Medications Medications (Trade) Dose Ordered Sig/Maycol Route Start Time Stop Time Status Last Admin Morphine Sulfate 4 mg ONCE ONCE IV 06/01/24 14:45 06/01/24 14:46 DC 06/01/24 16:10 Ondansetron HCl (Zofran) 4 mg ONCE ONCE IV 06/01/24 14:45 06/01/24 14:46 DC 06/01/24 16:10 PROCEDURE(s): CXR1 - CHEST XRAY 1 VIEW REASON: fever ORDER NUMBER(s): [id number], ACCESSION NUMBER(s): [id number] Chest x-ray Technique: AP view Comparison: 04/02/2020 CLINICAL INDICATION: Shortness of breath FINDINGS: Heart size borderline with left ventricular configuration. Aorta tortuous. No infiltrates or effusions. IMPRESSION: 1. No acute infiltrates EDURE(s): LS2CT - LS SPINE WO CONTRAST REASON: L low back pain r/o discitis/osteomyelitis ORDER NUMBER(s): [id number], ACCESSION NUMBER(s): [id number] CLINICAL INFORMATION: 64 years old, Female; low back pain. Rule out discitis/osteomyelitis. TECHNIQUE: Axial CT images of the lumbar spine were obtained without IV contrast. Coronal and sagittal reformatted images were obtained, reviewed, and stored. One or more of the following dose reduction techniques were used: Automated exposure control. Adjustment of mA and/or kV according to patient size. CTDIvol = 38.87, 0.41, 0.07 mGy DLP = 1153.54 right mGy-cm COMPARISON: None. FINDINGS: Vertebral body alignment is within normal limits. Vertebral body heights are maintained. Posterior elements are intact. No acute fracture. Paraspinal soft tissues are unremarkable. 4 mm nonobstructing calculus incidentally noted in the inferior pole of the right kidney. Lumbar disc levels: L1-L2: No significant disc/facet abnormality. No significant spinal canal or neural foraminal stenosis. L2-L3: No significant disc abnormality or spinal canal stenosis. Facet hypertrophy with [id number] bilateral neural foraminal stenoses. L3-L4: Posterior disc osteophyte complex causes moderate spinal canal stenosis. Facet hypertrophy with severe right moderate to severe left neural foraminal stenoses. Encroachment of the right neural foramen by right foraminal disc protrusion contributes to the right neural foraminal stenosis. There is calcification associated with the disc protrusion. L4-L5: Diffuse disc bulge mildly indenting the ventral aspect of the thecal sac. Mild spinal canal stenosis. Facet hypertrophy with moderate to severe bilateral neural foraminal stenoses. L5-S1: Mild disc space narrowing. No significant disc bulge or spinal canal stenosis. Facet hypertrophy with moderate bilateral neural foraminal stenoses. IMPRESSION: 1. No evidence of acute fracture or spondylolisthesis. 2. No findings are seen to suggest discitis/ osteomyelitis on CT. If there is clinical concern for discitis/osteomyelitis, MRI could be obtained. 3. Degenerative disc disease and facet disease in the lumbar spine with associated spinal canal, subarticular, and neural foraminal stenoses as detailed above. 4. Additional findings as described above EDURE(s): LLDVT - LT Lower DVT REASON: L calf pain ORDER NUMBER(s): [id number], ACCESSION NUMBER(s): [id number] Left lower extremity venous duplex Clinical History: L calf pain Comparison: None Technique: Duplex Doppler evaluation of the deep venous system of the left lower extremity from the common femoral vein to the popliteal vein including color Doppler and spectral/pulsed waveform analysis was performed. Findings: The common femoral vein demonstrates appropriate compressibility and waveform variability. There is compressibility/patency of the great saphenous vein at the proximal thigh. The femoral vein demonstrates appropriate compressibility and waveform variability. The deep femoral vein demonstrates appropriate compressibility and waveform variability. The popliteal vein demonstrates appropriate compressibility and waveform variability. There is normal compressibility at the tibioperoneal trunk. Impression: 1. No left femoropopliteal venous thrombosis. 2. If clinical concern/symptoms persist or worsen, short-interval follow-up study is suggested. HS:Y X-Ray, Labs, Meds, VS Comment 64-year-old female with a history of CHF, COPD, FMD, hypertension, diabetes, CAD, KS referred by primary physician for evaluation of low back pain radiating to the left lower extremity Vitals remarkable for BP 174/77 Exam remarkable for lumbar midline and paraspinal tenderness to palpation Rhythm strip independently interpreted by me: Sinus rhythm, rate 80, no ectopy. Chest x-ray unremarkable CT lumbar spine: Complete report reviewed by me. Many degenerative findings. No evidence of diskitis or osteomyelitis. Left lower extremity Doppler ultrasound negative for DVT CBC remarkable for platelets 133, basic metabolic panel unremarkable, ESR slightly elevated at 33, D-dimer slightly elevated at 0.74, UA unremarkable Patient treated with the following in the ED: Morphine 4 mg IV, Zofran 4 mg IV. On re-evaluation, patient stated her pain was persistent, so Dilaudid 1 mg IV and dexamethasone 10 mg IV were ordered I updated Dr. Askew regarding patient's findings. She felt the patient could be safely discharged and will follow-up with the patient in her clinic. Patient advised regarding workup findings, my impression, treatment plan and follow-up recommendations. She expressed understanding and agreed. On re-evaluation, patient stated she no longer wanted to wait for the Dilaudid and dexamethasone. She signed out against medical advice prior to the administration of these medications. Patient removed her own IV and left the ED prior to my ability to speak with the patient. Time of 1ST Reevaluation: 19:22 Reevaluation 1ST: Improved Patient Education/Counseling: Diagnosis, Treatment, Need For Follow Up Family Education/Counseling: Diagnosis, Treatment, Need For Follow Up Departure 1 Departure Time of Disposition: 18:59 Impression: Primary Impression: Lumbar radiculopathy Disposition: 07 LEFT AGAINST MEDICAL ADVICE Condition: Stable Additional Instructions: Follow-up with Dr. Askew in 1-[address] report is below. Take own pain medication as needed. [place] [id number] Ph: [phone] DIAGNOSTIC IMAGING Diagnostic Imaging Report : [id number] Signed PATIENT: CHRIS EUBANKS ACCT: [id number] UNIT: [id number] : 1960 LOC: ER ROOM / BED: / AGE / SEX: 64 / F ADM STATUS: REG ER SERVICE [id number] ORDERING PHYSICIAN: CHAPARRITA FREEDMAN MD PROCEDURE(s): LS2CT - LS SPINE WO CONTRAST REASON: L low back pain r/o discitis/osteomyelitis ORDER NUMBER(s): [id number], ACCESSION NUMBER(s): [id number] CLINICAL INFORMATION: 64 years old, Female; low back pain. Rule out discitis/osteomyelitis. TECHNIQUE: Axial CT images of the lumbar spine were obtained without IV contrast. Coronal and sagittal reformatted images were obtained, reviewed, and stored. One or more of the following dose reduction techniques were used: Automated exposure control. Adjustment of mA and/or kV according to patient size. CTDIvol = 38.87, 0.41, 0.07 mGy DLP = 1153.54 right mGy-cm COMPARISON: None. FINDINGS: Vertebral body alignment is within normal limits. Vertebral body heights are maintained. Posterior elements are intact. No acute fracture. Paraspinal soft tissues are unremarkable. 4 mm nonobstructing calculus incidentally noted in the inferior pole of the right kidney. Lumbar disc levels: L1-L2: No significant disc/facet abnormality. No significant spinal canal or neural foraminal stenosis. L2-L3: No significant disc abnormality or spinal canal stenosis. Facet hypertrophy with [id number] bilateral neural foraminal stenoses. L3-L4: Posterior disc osteophyte complex causes moderate spinal canal stenosis. Facet hypertrophy with severe right moderate to severe left neural foraminal stenoses. Encroachment of the right neural foramen by right foraminal disc protrusion contributes to the right neural foraminal stenosis. There is calcification associated with the disc protrusion. L4-L5: Diffuse disc bulge mildly indenting the ventral aspect of the thecal sac. Mild spinal canal stenosis. Facet hypertrophy with moderate to severe bilateral neural foraminal stenoses. L5-S1: Mild disc space narrowing. No significant disc bulge or spinal canal stenosis. Facet hypertrophy with moderate bilateral neural foraminal stenoses. IMPRESSION: 1. No evidence of acute fracture or spondylolisthesis. 2. No findings are seen to suggest discitis/ osteomyelitis on CT. If there is clinical concern for discitis/osteomyelitis, MRI could be obtained. 3. Degenerative disc disease and facet disease in the lumbar spine with associated spinal canal, subarticular, and neural foraminal stenoses as detailed above. 4. Additional findings as described above Discharged With: Spouse Critical Care Note Critical Care Time?: No Stability Stability form required: No Heart Score Heart Score: Heart Score Response (Comments) Value History N/A 0 EKG N/A 0 Age N/A 0 Risk Factors N/A 0 Troponin N/A 0 Total 0 I personally scribed for CHAPARRITA FREEDMAN MD ([email or web address]) on 06/01/24 at 18:25. Electronically submitted by Cheng Felton ([email or web address]). CHAPARRITA FREEDMAN MD Jun 01, 2024 18:25
[2024-06-01 18:54] VITALS: BP 156/94; PULSE 80; RESP 20; TEMP 98.5; O2SAT 93
== END 2024-06-01 20:43 | disposition home or self-care (01) ==
LOC: ER 14:11
DX: M54.16 Radiculopathy, lumbar region (principal); I11.0 Hypertensive heart disease with heart failure; I50.9 Heart failure, unspecified; E11.9 Type 2 diabetes mellitus without complications; I25.10 Atherosclerotic heart disease of native coronary artery without angina pectoris; J44.9 Chronic obstructive pulmonary disease, unspecified; I25.2 Old myocardial infarction; Z86.73 Personal history of transient ischemic attack (TIA), and cerebral infarction without residual deficits; Z90.710 Acquired absence of both cervix and uterus; Z79.82 Long term (current) use of aspirin; Z79.84 Long term (current) use of oral hypoglycemic drugs; Z79.85 Long-term (current) use of injectable non-insulin antidiabetic drugs; Z79.899 Other long term (current) drug therapy; Z88.0 Allergy status to penicillin; Z88.8 Allergy status to other drugs, medicaments and biological substances
CPT/HCPCS: 36415; 71045; 72131; 80048; 81001; 83605; 84550; 85025; 85379; 85652; 87040; 87086; 93971; 96374; 96375; 99285; J2270; J2405

== ENCOUNTER 2024-11-02 11:54 | Inpatient (IN) | payer MEDICARE, MEDICAID ==
[2024-11-02] VITALS (9 sets, daily range): BP systolic 160–183; BP diastolic 77–87; PULSE 69–85; RESP 18–24; TEMP 97.9–98.6; O2SAT 95–99
[~2024-11-02] VITALS: Ht 167.6 cm; Wt 103.8 kg
--- NOTE | 2024-11-02 12:22 | ED.PDOC ---
HPI Comments 64 y/o F, with PMHx of CHF, COPD, TIA, VA, HTN, DM, CVA, and breast cancer presents to the ED for CC of chest pain. Patient states, that she has been experiencing substernal chest pain that radiates down her left arm with associated shortness of breath, nausea, and vomiting xweeks. Patient reports, that she was seen in [place], [place] by on Saturday (10/30/24); Dx:Angina and was told to return [facility] to have [facility] heart cancer[facility] procedure done. Patient reports, chest pain has worsened since Saturday (10/30/24) and pain now feels similar to symptoms of previous VA. Patient denies palpitations, weakness, fatigue, or dizziness. No other symptoms or modifying factors present at this time. Chief Complaint: Chest Pain Time Seen by MD: 12:10 Primary Care Provider: Arabella Reviewed Notes: Nurses Notes, Medications, Allergies Allergies: Coded Allergies: Iodine (Verified Allergy, Severe, 04/02/24) Penicillins (Verified Allergy, Intermediate, Hives, 04/03/24) Acetaminophen (Verified Allergy, Unknown, 05/27/24) Uncoded Allergies: CONTRAST (Allergy, Severe, 04/02/24) Home Meds Active Scripts Hydralazine HCl (Hydralazine HCl) 25 Mg Tab, 1 TAB PO TIDPRN PRN for 30 Days, #90 TAB take sBP>170 Prov:ROBERT BOLTON MD 04/06/24 Nifedipine (Nifedipine Er) 30 Mg Tab, 60 MG PO DAILY for 60 Days, #120 TAB Prov:ROBERT BOLTON MD 04/06/24 Labetalol HCl (Labetalol HCl) 200 Mg Tab, 200 MG PO TID for 60 Days, #180 TAB Prov:ROBERT BOLTON MD 04/06/24 Reported Medications Zolpidem Tartrate (Zolpidem Tartrate) 10 Mg Tab, 10 MG PO HS PRN for FOR INSOMNIA, TAB 04/03/24 Metformin Hydrochloride (METFORMIN HCL ER) 500 Mg Tab, 500 MG PO DAILY@DINNER, TAB 04/03/24 Isosorbide Mononitrate (Isosorbide Mononitrate Er) 30 Mg Tab, 1 TAB PO DAILY 04/03/24 Ropinirole Hydrochloride (Ropinirole Hcl) 1 Mg Tab, 1 TAB PO QPM 04/03/24 Insulin Regular (Human) (Humulin R U-500 Kwikpen) 500 Unit/Ml Inj, SC 04/03/24 Atorvastatin Calcium (ATORVASTATIN CALCIUM) 40 Mg Tab, 1 TAB PO DAILY 04/03/24 Levetiracetam (Levetiracetam) 1,000 Mg Tab, 1 TAB PO BID 04/03/24 Aspirin (Chewable Aspirin) 81 Mg Chw, 1 TAB PO DAILY 04/03/24 Dulaglutide (Trulicity) 4.5 Mg/0.5 Ml Inj, 4.5 MG SC QWEEKLY 04/03/24 Oxycodone Hcl (OXYCODONE HCL) 5 Mg Tb, 10 MG PO TID PRN for PAIN SCALE 1 THRU 6, TAB 04/03/24 Information Source: Patient Mode of Arrival: Wheelchair Severity: Moderate Timing: Days Duration: Since onset Prehospital treatment: None Location: Substernal Radiation: Arm (L) Quality: Squeezing Onset: At Rest Cardiac Risk Factors: HTN, Diabetes PE Risk Factors: None History of: VA, Angina Modifying Factors: Nothing Associated Signs and Symptoms: SOB, N/V Past Medical History PAST MEDICAL HISTORY: Cancer, CHF, COPD, CVA, DM, HTN, VA, Seizures Surgical History: , Hysterectomy [employer] History: Denies all [employer] Hx Family History Family History: Family hx of Cancer, Family hx of heart johnny Social History Smoker: Non-Smoker Alcohol: Denies ETOH Use Drugs: Marijuana Lives In: Home Constitutional: denies: chills, diaphoresis, fatigue, fever, malaise, sweats, weakness, others EENTM: denies: blurred vision, double vision, ear bleeding, ear discharge, ear drainage, ear pain, ear ringing, eye pain, eye redness, hearing loss, mouth pain, mouth swelling, nasal discharge, nose bleeding, nose congestion, nose p ain, photophobia, tearing, throat pain, throat swelling, voice changes, others Respiratory: reports: shortness of breath; denies: cough, hemoptysis, orthopnea, SOB at rest, SOB with excertion, stridor, wheezing, others Cardiovascular: reports: chest pain; denies: dizzy spells, diaphoresis, Dyspnea on exertion, edema, irregular heart beat, left arm pain, lightheadedness, palpitations, PND, syncope, others Gastrointestinal: reports: diarrhea, vomiting; denies: abdomen distended, abdominal pain, blood streaked bowels, constipated, dysphagia, difficulty swallowing, hematemesis, melena, nausea, poor appetite, poor fluid intake, rectal bleeding, rectal pain, others Genitourinary: denies: abnormal vagina bleeding, burning, dyspareunia, dysuria, flank pain, frequency, hematuria, incontinence, pain, , vagina discharge, urgency, others Neurological: denies: dizziness, fainting, headache, left sided numbness, left sided weakness, numbness, paresthesia, pre-existing deficit, right sided numbness, right sided weakness, seizure, speech problems, tingling, tremors, weakness, others Musculoskeletal: denies: back pain, gout, joint pain, joint swelling, muscle pain, muscle stiffness, neck pain, others Integumetry: denies: bruises, change in color, change in hair/nails, dryness, laceration, lesions, lumps, rash, wounds, others Allergic/Immunocompromised: denies: Difficulty Healing, Frequent Infections, Hives, Itching, others Hematologic/Lymphatic: denies: anemia, blood clots, easy bleeding, easy bruising, swollen glands, others Endocrine: denies: excessive hunger, excessive sweating, excessive thirst, excessive urination, flushing, intolerance to cold, intolerance to heat, unexplained weight gain, unexplained weight loss, others Psychiatric: denies: anxiety, bipolar disorder, depression, hopeless, panic disorder, schizophrenia, sleepless, suicidal, others All Other Systems: Reviewed and Negative Physical Exam General Appearance: Moderate Distress HEENT: Normal ENT Inspection, Pharynx Normal, TMs Normal Neck: Full Range of Motion, Non-Tender, Normal, Normal Inspection Respiratory: Chest Non-Tender, Lungs Clear, No Accessory Muscle Use, No Respiratory Distress, Normal Breath Sounds Cardiovascular: No Edema, No JVD, No Murmur, No Gallop, Normal Peripheral Pulses, Regular Rate/Rhythm Breast Exam: Deferred Gastrointestinal: No Organomegaly, Non Tender, No Pulsatile Mass, Normal Bowel Sounds, Soft Genitalia: Deferred Pelvic: Deferred Rectal: Deferred Extremities: No calf tenderness, Normal capillary refill, Normal inspection, Normal range of motion, Non-tender, No pedal edema Musculoskeletal : Apperance: Normal Neurologic: Alert, emt driver II-XII nml as Tested, Motor Weakness, Normal Affect, Normal Mood, No Sensory Deficits Cerebellar Function: Normal Reflexes: Normal Skin: Dry, Normal Color, Warm Lymphatic: No Adenopathy EKG EKG : Pulse Rate (adult): 82 [place]: Normal Cardiac Rhythm: NSR Block: None Hypertrophy: LVH ST: Normal Was a procedure done? Was a procedure done?: No CP Differential Dx Differential Diagnosis: Angina, VA Differential Diagnosis: CHF, HTN Essential, HTN Accelerated X-Ray, Labs, Meds, VS Vital Signs Date Time Temp Pulse Resp B/P (MAP) Pulse Ox O2 Delivery O2 Flow Rate FiO2 11/02/24 12:39 82 11/02/24 12:14 97.7 76 194/ (116) 96 97.7 11/02/24 12:14 76 24 95 Nasal Cannula* 3 32 11/02/24 12:06 82 11/02/24 11:58 97.7 76 194/78 (116) 96 97.7 Lab Test 11/02/24 12:14 Range/Units White Blood Count 3.3 L 4.4-10.8 10^3/uL Red Blood Count 4.98 4.0-5.20 10^6/uL Hemoglobin 15.3 12.2-16.2 g/dL Hematocrit 45.6 36.0-46.0 % Mean Corpuscular Volume 91.6 80.0-100.0 fL Mean Corpuscular Hemoglobin 30.8 28.0-32.0 pg Mean Corpuscular Hemoglobin Concent 33.6 32.0-36.0 g/dL Red Cell Distribution Width 14.0 11.8-14.3 % Platelet Count 115 L 140-450 10^3/uL Mean Platelet Volume 10.5 6.9-10.8 fL Neutrophils (%) (Auto) 46.3 37.0-80.0 % Lymphocytes (%) (Auto) 41.1 10.0-50.0 % Monocytes (%) (Auto) 10.1 0.0-12.0 % Eosinophils (%) (Auto) 1.4 0.0-7.0 % Basophils (%) (Auto) 1.1 0.0-2.0 % Neutrophils # (Auto) 1.5 L 1.6-8.6 10 ^3/uL Lymphocytes # (Auto) 1.4 0.4-5.4 10 ^3/uL Monocytes # (Auto) 0.3 0-1.3 10 ^3/uL Eosinophils # (Auto) 0 0-0.8 10 ^3/uL Basophils # (Auto) 0 0-0.2 10 ^3/uL Nucleated Red Blood Cells 0.3 % Prothrombin Time 12.1 H 9.3-11.8 sec Prothrombin Time INR 1.16 H 0.9-1.15 Activated Partial Thromboplast Time 26.9 24.5-34.5 SEC Sodium Level 139 136-145 mmol/L Potassium Level 3.5 3.5-5.1 mmol/L Chloride Level 104 98-107 mmol/L Carbon Dioxide Level 28 20-31 mmol/L Anion Gap 7 5-15 Blood Urea Nitrogen 13 9-23 mg/dL Creatinine 0.75 0.550-1.02 mg/dL Glomerular Filtration Rate Calc 88 >90 mL/min BUN/Creatinine Ratio 17.3 10.0-20.0 Serum Glucose 229 H 74-106 mg/dL Calcium Level 10.4 8.7-10.4 mg/dL Troponin I High Sensitivity 11 </=34 ng/L B-Type Natriuretic Peptide 20.61 0-100 pg/mL Current Medications Medications (Trade) Dose Ordered Sig/Maycol Route Start Time Stop Time Status Last Admin Aspirin 162 mg ONCE ONCE PO 11/02/24 12:15 11/02/24 12:16 DC 11/02/24 12:39 Morphine Sulfate 4 mg ONCE ONCE IV 11/02/24 12:15 11/02/24 12:16 DC 11/02/24 12:46 Ondansetron HCl (Zofran) 4 mg ONCE ONCE IV 11/02/24 12:15 11/02/24 12:16 DC 11/02/24 12:39 CXR: IMPRESSION: No acute intrathoracic process. On an IV Hep-Lock was established The patient is having some chest pain so the patient was given morphine 4 mg IV push The patient was given Zofran 4 mg IV push for the nausea The patient was given aspirin 162 mg by mouth The INR is 1.16 The chemistry panel is within normal limits in the CBC is within normal limits The patient's 1st troponin level came back within normal limits The patient was still having persistent chest pain as well as an elevated blood pressure The patient is being admitted The cotton breeder did consult on this patient and they are taking her to [facility] at this time The patient is currently being taken to [facility] Critical Care was involved with bedside management as well as interpretation of labs and communication with the consultants The patient is admitted Images Reviewed?: Images reviewed and evaluated by me Time of 1ST Reevaluation: 12:40 Reevaluation 1ST: Unchanged Patient Education/Counseling: Diagnosis, Treatment, Prognosis Family Education/Counseling: No Family Present Departure 1 Departure Time of Disposition: 13:40 Impression: Primary Impression: Acute chest pain Additional Impression: Acute myocardial ischemia Disposition: ADMITTED INPATIENT Admit to: Tele Condition: Fair Critical Care Note Critical Care Time?: Yes (45 min-critical care time only) Stability Stability form required: Yes Unstable for transfer: Telemetry monitoring (Telemetry monitoring required), ED Physician Assesment (Clinical assesment) Heart Score Heart Score: Heart Score Response (Comments) Value History Highly Suspicious 2 EKG Repolarization Disturb 1 Age >65 2 Risk Factors >3 or Hx ASHD 2 Troponin 1-2 x's Normal limit 1 Total 8 I personally scribed for ALIZE MANN MD ([email or web address]) on 11/02/24 at 12:22. Electronically submitted by Venus Daley ([email or web address]). I personally scribed for ALIZE MANN MD ([email or web address]) on 11/02/24 at 12:39. Electronically submitted by Venus Daley ([email or web address]). I personally scribed for ALIZE MANN MD ([email or web address]) on 11/02/24 at 13:26. Electronically submitted by Venus Daley [email or web address]). ALIZE MANN MD November 02, 2024 12:22
[2024-11-02 12:30] LABS: Basophils # (auto) 0 10 ^3/uL (0-0.2); Basophils % (auto) 1.1 % (0.0-2.0); Eosinophils # (auto) 0 10 ^3/uL (0-0.8); Eosinophils % (auto) 1.4 % (0.0-7.0); Hematocrit 45.6 % (36.0-46.0); Hemoglobin 15.3 g/dL (12.2-16.2); Lymphocytes # (auto) 1.4 10 ^3/uL (0.4-5.4); Lymphocytes % (auto) 41.1 % (10.0-50.0); Mean Corpuscular Hemoglobin 30.8 pg (28.0-32.0); Mean Corpuscular Hgb Conc. 33.6 g/dL (32.0-36.0); Mean Corpuscular Volume 91.6 fL (80.0-100.0); Monocytes # (auto) 0.3 10 ^3/uL (0-1.3); Monocytes % (auto) 10.1 % (0.0-12.0); Neutrophils # (auto) 1.5 10 ^3/uL (1.6-8.6); Neutrophils % (auto) 46.3 % (37.0-80.0); Nucleated Red Blood Cells % 0.3 %; Platelet Count (auto) 115 10^3/uL (140-450); Red Blood Cells 4.98 10^6/uL (4.0-5.20); White Blood Cell 3.3 10^3/uL (4.4-10.8)
[2024-11-02 12:34] LABS: Chloride 104 mmol/L (98-107); Potassium 3.5 mmol/L (3.5-5.1); Sodium 139 mmol/L (136-145)
[2024-11-02 12:35] LABS: Anion Gap 7 (5-15); Calcium 10.4 mg/dL (8.7-10.4); Carbon Dioxide 28 mmol/L (20-31)
[2024-11-02] MEDS: ASPirin 81 mg TAB PO ONE (12:39)
[2024-11-02] MEDS: ONDANSETRON HCL 4 MG/2 ML VIAL IV ONE (12:39)
[2024-11-02 12:40] LABS: BUN/Creatinine Ratio 17.3 (10.0-20.0); Blood Urea Nitrogen 13 mg/dL (9-23)
--- NOTE | 2024-11-02 12:42 | DVHHP2 ---
Admitting Diagnosis: Unstable angina History of Present Illness This is a 64 year-old female With a past medical history pertinent for COPD, diabetes, type two, hypertension, CVA, IA, breast cancer and congestive heart failure, Presenting to the emergency room today with a chief complaint of unstable angina. Patient states she was recently seen at [place] and that this morning she was at Dr. Bell's office. Dr. Bell sent her here for a left heart cath to be done by Dr. Gresham. Chest pain has been intermittent and ongoing since Saturday. Past Medical History COPD, CHF, hypertension, diabetes, history of breast, cancer, history of CVA, history of IA Patient Family History: Patient reports no known family medical history. Allergies: Coded Allergies: Iodine (Verified Allergy, Severe, 04/02/24) Penicillins (Verified Allergy, Intermediate, Hives, 04/03/24) Acetaminophen (Verified Allergy, Unknown, 05/27/24) Uncoded Allergies: CONTRAST (Allergy, Severe, 04/02/24) Home Meds Active Scripts Hydralazine HCl (Hydralazine HCl) 25 Mg Tab, 1 TAB PO TIDPRN PRN for 30 Days, #90 TAB take sBP>170 Prov:ROBERT BOLTON MD 04/06/24 Nifedipine (Nifedipine Er) 30 Mg Tab, 60 MG PO DAILY for 60 Days, #120 TAB Prov:ROBERT BOLTON MD 04/06/24 Labetalol HCl (Labetalol HCl) 200 Mg Tab, 200 MG PO TID for 60 Days, #180 TAB Prov:ROBERT BOLTON MD 04/06/24 Reported Medications Pantoprazole Sodium Sesquihydr (Pantoprazole Sodium) 40 Mg Tab, 1 TAB PO DAILY 11/02/24 Rosuvastatin Calcium (Crestor) 40 Mg Tab, 1 TAB PO 11/02/24 Zolpidem Tartrate (Zolpidem Tartrate) 10 Mg Tab, 10 MG PO HS PRN for FOR INSOMNIA, TAB 04/03/24 Metformin Hydrochloride (METFORMIN HCL ER) 500 Mg Tab, 500 MG PO DAILY@DINNER, TAB 04/03/24 Isosorbide Mononitrate (Isosorbide Mononitrate Er) 30 Mg Tab, 1 TAB PO DAILY 04/03/24 Ropinirole Hydrochloride (Ropinirole Hcl) 1 Mg Tab, 1 TAB PO QPM 04/03/24 Insulin Regular (Human) (Humulin R U-500 Kwikpen) 500 Unit/Ml Inj, SC 04/03/24 Atorvastatin Calcium (ATORVASTATIN CALCIUM) 40 Mg Tab, 1 TAB PO DAILY 04/03/24 Levetiracetam (Levetiracetam) 1,000 Mg Tab, 1 TAB PO BID 04/03/24 Aspirin (Chewable Aspirin) 81 Mg Chw, 1 TAB PO DAILY 04/03/24 Dulaglutide (Trulicity) 4.5 Mg/0.5 Ml Inj, 4.5 MG SC QWEEKLY 04/03/24 Oxycodone Hcl (OXYCODONE HCL) 5 Mg Tb, 10 MG PO TID PRN for PAIN SCALE 1 THRU 6, TAB 04/03/24 Current Medications Current Medications Medications (Trade) Dose Ordered Sig/Maycol Route PRN Reason Start Time Stop Time Status Last Admin Sodium Chloride 1,000 ml @ 120 mls/hr Q8H20M IV 11/02/24 12:45 11/02/24 12:45 Ondansetron HCl (Zofran) 4 mg Q4HP PRN IV NAUSEA / VOMITING 11/02/24 12:45 Morphine Sulfate 2 mg Q4HPRN PRN IV SEVERE PAIN (7-10 PAIN SCALE) 11/02/24 12:45 11/02/24 22:17 Tramadol HCl (Ultram) 50 mg Q6HP PRN PO MODERATE PAIN (4-6 PAIN SCALE) 11/02/24 12:45 Patient Own Medication 1 tab DAILY PO 11/03/24 10:00 Cancel Patient Own Medication 1 tab BID PO 11/02/24 22:00 UNV Nifedipine (Procardia Xl (Time-Release)) 60 mg DAILY PO 11/03/24 10:00 Labetalol HCl (Labetalol HCl) 10 mg Q2HPRN PRN IV SBP>150 11/02/24 14:45 11/02/24 22:22 Isosorbide Mononitrate (Imdur Er Tablet) 30 mg DAILY PO 11/03/24 10:00 Levetiracetam (Keppra Tablet) 1,000 mg BID PO 11/02/24 22:00 11/02/24 22:10 Losartan Potassium (Cozaar Tablet) 50 mg BID PO 11/02/24 22:45 UNV Review of Systems Constitutional: denies: chills, diaphoresis, fatigue, fever, malaise, sweats, weakness, others EENTM: denies: blurred vision, double vision, ear bleeding, ear discharge, ear drainage, ear pain, ear ringing, eye pain, eye redness, hearing loss, mouth pain, mouth swelling, nasal discharge, nose bleeding, nose congestion, nose pain, photophobia, tearing, throat pain, throat swelling, voice changes, others Respiratory: reports: shortness of breath; denies: cough, hemoptysis, orthopnea, SOB at rest, SOB with excertion, stridor, wheezing, others Cardiovascular: reports: chest pain; denies: dizzy spells, diaphoresis, Dyspnea on exertion, edema, irregular heart beat, left arm pain, lightheadedness, palpit ations, PND, syncope, others Gastrointestinal: reports: diarrhea, vomiting; denies: abdomen distended, abdominal pain, blood streaked bowels, constipated, dysphagia, difficulty swallowing, hematemesis, melena, nausea, poor appetite, poor fluid intake, rectal bleeding, rectal pain, others Genitourinary: denies: abnormal vagina bleeding, burning, dyspareunia, dysuria, flank pain, frequency, hematuria, incontinence, pain, , vagina discharge, urgency, others Neurological: denies: dizziness, fainting, headache, left sided numbness, left sided weakness, numbness, paresthesia, pre-existing deficit, right sided numbness, right sided weakness, seizure, speech problems, tingling, tremors, weakness, others Musculoskeletal: denies: back pain, gout, joint pain, joint swelling, muscle pain, muscle stiffness, neck pain, others Integumetry: denies: bruises, change in color, change in hair/nails, dryness, laceration, lesions, lumps, rash, wounds, others Allergic/Immunocompromised: denies: Difficulty Healing, Frequent Infections, Hives, Itching, others Hematologic/Lymphatic: denies: anemia, blood clots, easy bleeding, easy bruising, swollen glands, others Endocrine: denies: excessive hunger, excessive sweating, excessive thirst, excessive urination, flushing, intolerance to cold, intolerance to heat, unexpl ained weight gain, unexplained weight loss, others Psychiatric: denies: anxiety, bipolar disorder, depression, hopeless, panic disorder, schizophrenia, sleepless, suicidal, others All Other Systems: Reviewed and Negative Vital Signs Vital Signs Date Time Temp Pulse Resp B/P (MAP) Pulse Ox O2 Delivery O2 Flow Rate FiO2 11/02/24 22:22 78 160/78 11/02/24 22:17 18 11/02/24 17:39 98.6 99 98.6 11/02/24 17:39 Room Air* 0 21 Physical Exam General Appearance: Moderate Distress HEENT: Normal ENT Inspection, Pharynx Normal, TMs Normal Neck: Full Range of Motion, Non-Tender, Normal, Normal Inspection Respiratory: Chest Non-Tender, Lungs Clear, No Accessory Muscle Use, No Respira tory Distress, Normal Breath Sounds Cardiovascular: No Edema, No JVD, No Murmur, No Gallop, Normal Peripheral Pulses, Regular Rate/Rhythm Breast Exam: Deferred Gastrointestinal: No Organomegaly, Non Tender, No Pulsatile Mass, Normal Bowel Sounds, Soft Genitalia: Deferred Pelvic: Deferred Rectal: Deferred Extremities: No calf tenderness, Normal capillary refill, Normal inspection, Normal range of motion, Non-tender, No pedal edema Musculoskeletal : Apperance: Normal Neurologic: Alert, director of provider relations II-XII nml as Tested, Motor Weakness, Normal Affect, Normal Mood, No Sensory Deficits Cerebellar Function: Normal Reflexes: Normal Skin: Dry, Normal Color, Warm Lymphatic: No Adenopathy Results Labs Test 11/02/24 13:21 11/02/24 12:14 Range/Units Troponin I High Sensitivity 11 </=34 ng/L White Blood Count 3.3 L 4.4-10.8 10^3/uL Red Blood Count 4.98 4.0-5.20 10^6/uL Hemoglobin 15.3 12.2-16.2 g/dL Hematocrit 45.6 36.0-46.0 % Mean Corpuscular Volume 91.6 80.0-100.0 fL Mean Corpuscular Hemoglobin 30.8 28.0-32.0 pg Mean Corpuscular Hemoglobin Concent 33.6 32.0-36.0 g/dL Red Cell Distribution Width 14.0 11.8-14.3 % Platelet Count 115 L 140-450 10^3/uL Mean Platelet Volume 10.5 6.9-10.8 fL Neutrophils (%) (Auto) 46.3 37.0-80.0 % Lymphocytes (%) (Auto) 41.1 10.0-50.0 % Monocytes (%) (Auto) 10.1 0.0-12.0 % Eosinophils (%) (Auto) 1.4 0.0-7.0 % Basophils (%) (Auto) 1.1 0.0-2.0 % Neutrophils # (Auto) 1.5 L 1.6-8.6 10 ^3/uL Lymphocytes # (Auto) 1.4 0.4-5.4 10 ^3/uL Monocytes # (Auto) 0.3 0-1.3 10 ^3/uL Eosinophils # (Auto) 0 0-0.8 10 ^3/uL Basophils # (Auto) 0 0-0.2 10 ^3/uL Nucleated Red Blood Cells 0.3 % Prothrombin Time 12.1 H 9.3-11.8 sec Prothrombin Time INR 1.16 H 0.9-1.15 Activated Partial Thromboplast Time 26.9 24.5-34.5 SEC Sodium Level 139 136-145 mmol/L Potassium Level 3.5 3.5-5.1 mmol/L Chloride Level 104 98-107 mmol/L Carbon Dioxide Level 28 20-31 mmol/L Anion Gap 7 5-15 Blood Urea Nitrogen 13 9-23 mg/dL Creatinine 0.75 0.550-1.02 mg/dL Glomerular Filtration Rate Calc 88 >90 mL/min BUN/Creatinine Ratio 17.3 10.0-20.0 Serum Glucose 229 H 74-106 mg/dL Calcium Level 10.4 8.7-10.4 mg/dL B-Type Natriuretic Peptide 20.61 0-100 pg/mL Primary Diagnosis Unstable angina Admitting Diagnosis: Unstable angina 2' Diagnosis/Comorbidities HTN Diabetes Hx IA Plan Cardiology consult. Plan for heart cath Monitor EKG Anti-hypertensives Insulin sliding scale PPI DVT prophylaxis Plan discussed with: Patient Problems List: (1) Unstable angina Status: Acute (2) HTN (hypertension) Status: Chronic (3) Diabetes mellitus Status: Chronic (4) History of CVA (cerebrovascular accident) Status: Resolved (5) Hx of myocardial infarction Status: Resolved Code Visit Code Visit Total Time (mins): 45 BILLY TURNER NP November 02, 2024 12:42
[2024-11-02 12:43] LABS: Glucose 229 mg/dL (74-106)
[2024-11-02] MEDS: SODIUM CHLORIDE 0.9% 1,000 ML IV SCH (12:45)
[2024-11-02] MEDS ORDERED: ONDANSETRON HCL 4 MG/2 ML VIAL IV PRN (12:45)
--- NOTE | 2024-11-02 12:45 | DVH ---
EXAM: XY CHEST PORTABLE HISTORY: Cp COMPARISON: XY CHEST XRAY 1 VIEW on DOS: 06/01/24, XY CHEST PORTABLE on DOS: 04/02/24 TECHNIQUE: Portable AP view of the chest was performed. FINDINGS: No pneumothorax, consolidative infiltrates, or pulmonary edema. The heart is borderline enlarged. The re is thoracic degenerative disc disease. IMPRESSION: No acute intrathoracic process.
[2024-11-02] MEDS: MORPHINE SULFATE 4 MG/ML SYR/VIAL IV ONE (12:46)
--- NOTE | 2024-11-02 13:01 | ECG ---
[facility] Test Date: 2024-11-02 Test Time: 13:00:09 Pat Name: CHRIS EUBANKS Department: ED Room: 0298T Gender: F Disassembler Product: [id number] : 1960 Requested By: ALIZE MANN Order Number: [id number] Reading MD: Cole Ren Measurements Intervals [place] Rate: 74 P: 50 CT: 187 QRS: 24 QRSD: 87 T: 254 QT: 382 QTc: 424 Interpretive Statements Sinus rhythm LVH with secondary repolarization abnormality Electronically Signed On 11-04-2024 12:46:06 PDT by Cole Ren Please click the below link to view image of tracing.
[2024-11-02 13:05] LABS: INR 1.16 (0.9-1.15); Partial Thromboplastin Time 26.9 SEC (24.5-34.5); Prothrombin Time 12.1 sec (9.3-11.8)
[2024-11-02] MEDS ORDERED: NITROGLYCERIN 2% OINT 1GM PKG TD ONE (13:15)
[2024-11-02] MEDS: methylPREDNISolone SOD SUCC 125 MG/2 ML VL ONE (14:22)
[2024-11-02] MEDS: MIDAZOLAM HCL 2MG/2ML 2ml VIAL (1mg/ml) ONE (14:23)
[2024-11-02] MEDS: fentaNYL CITRATE 100 MCG/2 ML VL ONE (14:23)
[2024-11-02] MEDS: diphenhdrAMINE HCL 50 MG/1 ML VL ONE (14:23)
[2024-11-02] MEDS: HEPARIN SODIUM (PORCINE) 5000 UNITS/ML 1ML VIAL ONE (14:25)
[2024-11-02] MEDS: ANGIOMAX 250 MG VIAL IV ONE (14:25)
[2024-11-02] MEDS: VERAPAMIL 2.5MG/ML INJ 2ML VIAL IV ONE (14:26)
[2024-11-02] MEDS: SODIUM CHL 0.9% 0 ML ONE (14:26)
[2024-11-02] MEDS: IODIXANOL 320MG/ML 100ML BTL IV ONE (14:26)
--- NOTE | 2024-11-02 14:29 | DVHINCON2 ---
Date of service: November 02, 2024 History of Present Illness 64 y/o F, with PMHx of CHF, COPD, TIA, WA, HTN, DM, CVA, and breast cancer presents to the ED for CC of chest pain. Patient states, that she has been exp eriencing substernal chest pain that radiates down her left arm with associated shortness of breath, nausea, and vomiting xweeks. Patient reports, that she was seen in [place], [place] by on Saturday (10/30/24); Dx:Angina and was told to return to [facility] to have a heart cancerization procedure done. Patient reports, chest pain has worsened since Saturday (10/30/24) and pain now feels similar to symptoms of previous WA. Patient denies palpitations, weakness, fatigue, or dizziness. No other symptoms or modifying factors present at this time. Chief Complaint: Chest Pain Time Seen by MD: 12:10 Primary Care Provider: Arabella Reviewed Notes: Nurses Notes, Medications, Allergies Allergies: Coded Allergies: Iodine (Verified Allergy, Severe, 04/02/24) Penicillins (Verified Allergy, Intermediate, Hives, 04/03/24) Acetaminophen (Verified Allergy, Unknown, 05/27/24) Uncoded Allergies: CONTRAST (Allergy, Severe, 04/02/24) Past Medical History reviewed Family History: Patient reports no known family medical history. Allergies: Coded Allergies: Iodine (Verified Allergy, Severe, 04/02/24) Penicillins (Verified Allergy, Intermediate, Hives, 04/03/24) Acetaminophen (Verified Allergy, Unknown, 05/27/24) Uncoded Allergies: CONTRAST (Allergy, Severe, 04/02/24) Home Meds Active Scripts Hydralazine HCl (Hydralazine HCl) 25 Mg Tab, 1 TAB PO TIDPRN PRN for 30 Days, #90 TAB take sBP>170 Prov:ROBERT BOLTON MD 04/06/24 Nifedipine (Nifedipine Er) 30 Mg Tab, 60 MG PO DAILY for 60 Days, #120 TAB Prov:ROBERT BOLTON MD 04/06/24 Labetalol HCl (Labetalol HCl) 200 Mg Tab, 200 MG PO TID for 60 Days, #180 TAB Prov:ROBERT BOLTON MD 04/06/24 Reported Medications Zolpidem Tartrate (Zolpidem Tartrate) 10 Mg Tab, 10 MG PO HS PRN for FOR INSOMNIA, TAB 04/03/24 Metformin Hydrochloride (METFORMIN HCL ER) 500 Mg Tab, 500 MG PO DAILY@DINNER, TAB 04/03/24 Isosorbide Mononitrate (Isosorbide Mononitrate Er) 30 Mg Tab, 1 TAB PO DAILY 04/03/24 Ropinirole Hydrochloride (Ropinirole Hcl) 1 Mg Tab, 1 TAB PO QPM 04/03/24 Insulin Regular (Human) (Humulin R U-500 Kwikpen) 500 Unit/Ml Inj, SC 04/03/24 Atorvastatin Calcium (ATORVASTATIN CALCIUM) 40 Mg Tab, 1 TAB PO DAILY 04/03/24 Levetiracetam (Levetiracetam) 1,000 Mg Tab, 1 TAB PO BID 04/03/24 Aspirin (Chewable Aspirin) 81 Mg Chw, 1 TAB PO DAILY 04/03/24 Dulaglutide (Trulicity) 4.5 Mg/0.5 Ml Inj, 4.5 MG SC QWEEKLY 04/03/24 Oxycodone Hcl (OXYCODONE HCL) 5 Mg Tb, 10 MG PO TID PRN for PAIN SCALE 1 THRU 6, TAB 04/03/24 Current Medications Current Medications Medications (Trade) Dose Ordered Sig/Maycol Route PRN Reason Start Time Stop Time Status Last Admin Sodium Chloride 1,000 ml @ 120 mls/hr Q8H20M IV 11/02/24 12:45 Ondansetron HCl (Zofran) 4 mg Q4HP PRN IV NAUSEA / VOMITING 11/02/24 12:45 Morphine Sulfate 2 mg Q4HPRN PRN IV SEVERE PAIN (7-10 PAIN SCALE) 11/02/24 12:45 Tramadol HCl (Ultram) 50 mg Q6HP PRN PO MODERATE PAIN (4-6 PAIN SCALE) 11/02/24 12:45 Review of Systems 10 pt ros otherwise negative Vital Signs Vital Signs Date Time Temp Pulse Resp B/P (MAP) Pulse Ox O2 Delivery O2 Flow Rate FiO2 11/02/24 13:16 73 20 190/81 11/02/24 12:14 97.7 96 97.7 11/02/24 12:14 Nasal Cannula* 3 32 Physical Exam nad s1 s2 rrr ctab soft nt/nd no edema Labs/Diagnostic Data Labs Test 11/02/24 13:21 11/02/24 12:14 Range/Units Troponin I High Sensitivity 11 </=34 ng/L White Blood Count 3.3 L 4.4-10.8 10^3/uL Red Blood Count 4.98 4.0-5.20 10^6/uL Hemoglobin 15.3 12.2-16.2 g/dL Hematocrit 45.6 36.0-46.0 % Mean Corpuscular Volume 91.6 80.0-100.0 fL Mean Corpuscular Hemoglobin 30.8 28.0-32.0 pg Mean Corpuscular Hemoglobin Concent 33.6 32.0-36.0 g/dL Red Cell Distribution Width 14.0 11.8-14.3 % Platelet Count 115 L 140-450 10^3/uL Mean Platelet Volume 10.5 6.9-10.8 fL Neutrophils (%) (Auto) 46.3 37.0-80.0 % Lymphocytes (%) (Auto) 41.1 10.0-50.0 % Monocytes (%) (Auto) 10.1 0.0-12.0 % Eosinophils (%) (Auto) 1.4 0.0-7.0 % Basophils (%) (Auto) 1.1 0.0-2.0 % Neutrophils # (Auto) 1.5 L 1.6-8.6 10 ^3/uL Lymphocytes # (Auto) 1.4 0.4-5.4 10 ^3/uL Monocytes # (Auto) 0.3 0-1.3 10 ^3/uL Eosinophils # (Auto) 0 0-0.8 10 ^3/uL Basophils # (Auto) 0 0-0.2 10 ^3/uL Nucleated Red Blood Cells 0.3 % Prothrombin Time 12.1 H 9.3-11.8 sec Prothrombin Time INR 1.16 H 0.9-1.15 Activated Partial Thromboplast Time 26.9 24.5-34.5 SEC Sodium Level 139 136-145 mmol/L Potassium Level 3.5 3.5-5.1 mmol/L Chloride Level 104 98-107 mmol/L Carbon Dioxide Level 28 20-31 mmol/L Anion Gap 7 5-15 Blood Urea Nitrogen 13 9-23 mg/dL Creatinine 0.75 0.550-1.02 mg/dL Glomerular Filtration Rate Calc 88 >90 mL/min BUN/Creatinine Ratio 17.3 10.0-20.0 Serum Glucose 229 H 74-106 mg/dL Calcium Level 10.4 8.7-10.4 mg/dL B-Type Natriuretic Peptide 20.61 0-100 pg/mL Assessment r/o ACS htn obesity FMD MICHOACANO HL ckd Plan/Recommendation per primary cards pt had negative lexiscan in past 1 year however pt went to [facility] for ACS and LHC was recomended pt DC'ed home and sent here for local eval trops are - pt wishes to proceed after informed consent Plan discussed with: Patient RUDY UMANZOR MD November 02, 2024 14:29
[2024-11-02] MEDS: LIDOCAINE 2%HCL (LOCAL ANESTH.) INJ 20ML MDV ONE ×2 (14:34→15:11)
[2024-11-02] MEDS ORDERED: PANT40T PO (14:43)
[2024-11-02] MEDS ORDERED: ROSU40TA81 PO (14:43)
--- NOTE | 2024-11-02 15:40 | DVHOP2 ---
Operative Report Operative Report CARDIAC FIBER PICKER PROCEDURE REPORT [place], [place] Date of Service:b 11/02/24 Brand Executive: Rudy Umanzor MD PROCEDURES PERFORMED: Coronary angiogram, left heart catheterization, conscious sedation administration and supervision, less than 15 minutes; fluoroscopy use and interpretation. PREOPERATIVE DIAGNOSES: ACS POSTOP DIAGNOSIS: ACS DESCRIPTION OF PROCEDURE: The patient or appropriate family signed informed co nsent understanding the risks, benefits and alternatives of the procedure, they wished to proceed. The patient was brought to the cardiac paving and surfacing labourer in n.p.o. state. The patient was prepped in a sterile fashion. Sedation was used per cardiac cath protocol. I administered 2 mL of 2% lidocaine to the right wrist. With an antegrade front wall puncture. I cannulated the right radial artery and placed a 6-Setswana Glidesheath slender. Next, an intra-arterial spasmolytic was administered. Next, a - 6French [place] catheter a LVEDP measurement and pressure pullback. howeever i couldnt cannulate the coronary vessels given extreme vessel tortuolsity in subclavian. she also had severe spams requirng more intra arterial nitro given. 200 mcg. but still i couldnt get into the RCA or LM. so i Had to abandom this radial attempt and gave 8 cc 2% lidocaine to groin and wiht US guidance saved to pacs system, I cannulated the R RIGGING HELPER and placed a 6F sheath. then i used a 6F JL4 and JR4 At the completion of procedure, all guides and wires were removed, and there were no immediate complications. we used 6F mynx for closure. FINDINGS: RCA: Moderate vessel off the right sinus of Valsalva, there is no severe flow limiting stenosis. very tortuos vessel LEFT MAIN: Moderate size left main, it bifurcates into LAD and circumflex. no stenosis CIRCUMFLEX: Moderate caliber vessel coming off the left main with no flow limiting stenosis. LAD: LAD is a moderate caliber vessel coming of the left main. no stenosis. severe tortuosity. LVEDP of 14 mmhg CONCLUSIONS: 1. NO severe cad noted PLAN: Aggressive risk factor modification and medical management for the patient. RUDY UMANZOR MD November 02, 2024 15:40
[2024-11-02] MEDS: LABETALOL HCL 20 MG/4 ML VL IV PRN (17:14)
[2024-11-02] MEDS: MORPHINE SULFATE INJ 2 MG/ml SYRG IV PRN (17:15)
--- NOTE | 2024-11-02 17:30 | DVHDS2 ---
Discharge Summary Date of Admission November 02, 2024 at 12:39 Date of Discharge: November 02, 2024 Labs/Diagnostic Data: Laboratory Results Test 11/02/24 13:21 11/02/24 12:14 Troponin I High Sensitivity 11 ng/L (</=34) White Blood Count 3.3 10^3/uL (4.4-10.8) Red Blood Count 4.98 10^6/uL (4.0-5.20) Hemoglobin 15.3 g/dL (12.2-16.2) Hematocrit 45.6 % (36.0-46.0) Mean Corpuscular Volume 91.6 fL (80.0-100.0) Mean Corpuscular Hemoglobin 30.8 pg (28.0-32.0) Mean Corpuscular Hemoglobin Concent 33.6 g/dL (32.0-36.0) Red Cell Distribution Width 14.0 % (11.8-14.3) Platelet Count 115 10^3/uL (140-450) Mean Platelet Volume 10.5 fL (6.9-10.8) Neutrophils (%) (Auto) 46.3 % (37.0-80.0) Lymphocytes (%) (Auto) 41.1 % (10.0-50.0) Monocytes (%) (Auto) 10.1 % (0.0-12.0) Eosinophils (%) (Auto) 1.4 % (0.0-7.0) Basophils (%) (Auto) 1.1 % (0.0-2.0) Neutrophils # (Auto) 1.5 10 ^3/uL (1.6-8.6) Lymphocytes # (Auto) 1.4 10 ^3/uL (0.4-5.4) Monocytes # (Auto) 0.3 10 ^3/uL (0-1.3) Eosinophils # (Auto) 0 10 ^3/uL (0-0.8) Basophils # (Auto) 0 10 ^3/uL (0-0.2) Nucleated Red Blood Cells 0.3 % Prothrombin Time 12.1 sec (9.3-11.8) Prothrombin Time INR 1.16 (0.9-1.15) Activated Partial Thromboplast Time 26.9 SEC (24.5-34.5) Sodium Level 139 mmol/L (136-145) Potassium Level 3.5 mmol/L (3.5-5.1) Chloride Level 104 mmol/L (98-107) Carbon Dioxide Level 28 mmol/L (20-31) Anion Gap 7 (5-15) Blood Urea Nitrogen 13 mg/dL (9-23) Creatinine 0.75 mg/dL (0.550-1.02) Glomerular Filtration Rate Calc 88 mL/min (>90) BUN/Creatinine Ratio 17.3 (10.0-20.0) Serum Glucose 229 mg/dL (74-106) Calcium Level 10.4 mg/dL (8.7-10.4) B-Type Natriuretic Peptide 20.61 pg/mL (0-100) Other Laboratory Tests 11/02/24 12:14 Final Diagnosis/Problems List Chrst pain- angiogram dne- coronaries clear Discharge Disposition: Home with Health Services Discharge Instruct/Medications Diet: Cardiac 2g Na,low cholest Activity: No Restrictions, As Tolerated Follow Up/Referral: pcp 1 week Arabella 1 week Discharge Statement: "Patient was advised to return to the ER or call 911 if any headaches, dizziness, shortness of breath, chest pain, abdominal pain, bleeding, fevers, or worsening of medical condition. Patient was counseled about treatment plan, medications, possible side effects, patient�verbalized understanding. All questions were answered to the best of my ability. This discharge took greater then 30 minutes in planning, reviewing documentation, counseling the patient, and discussing with other team members." ASSESSMENT ASSESSMENT Assessment Chrst pain- angiogram dne- coronaries BILLY Mejia NP November 02, 2024 17:29
[2024-11-02] MEDS ORDERED: PATIENTS OWN MEDICATION (Levetiracetam 1 TAB) PO SCH (22:00)
[2024-11-02] MEDS: levETIRAcetam 500 MG TAB PO SCH (22:10)
[2024-11-02] MEDS: LOSARTAN POTASSIUM 50 MG TAB PO SCH (22:45)
--- NOTE | 2024-11-02 22:49 | DVHPN2 ---
Progress Note - Dictate vital signs Vital Sign Date Time Temp Pulse Resp B/P (MAP) Pulse Ox O2 Delivery O2 Flow Rate FiO2 11/02/24 22:22 78 160/78 11/02/24 22:17 18 11/02/24 17:39 98.6 99 98.6 11/02/24 17:39 Room Air* 0 21 medications Current Medications Medications Dose Ordered Sig/Maycol Route Start Time Stop Time Status Last Admin Dose Admin Sodium Chloride 1,000 ml @ 120 mls/hr Q8H20M IV 11/02/24 12:45 11/02/24 12:45 120 MLS/HR Ondansetron HCl 4 mg Q4HP PRN IV 11/02/24 12:45 Morphine Sulfate 2 mg Q4HPRN PRN IV 11/02/24 12:45 11/02/24 22:17 2 MG Tramadol HCl 50 mg Q6HP PRN PO 11/02/24 12:45 Patient Own Medication 1 tab DAILY PO 11/03/24 10:00 Cancel Patient Own Medication 1 tab BID PO 11/02/24 22:00 UNV Nifedipine 60 mg DAILY PO 11/03/24 10:00 Labetalol HCl 10 mg Q2HPRN PRN IV 11/02/24 14:45 11/02/24 22:22 10 MG Isosorbide Mononitrate 30 mg DAILY PO 11/03/24 10:00 Levetiracetam 1,000 mg BID PO 11/02/24 22:00 11/02/24 22:10 1,000 MG Losartan Potassium 50 mg BID PO 11/02/24 22:45 UNV laboratory and microbiology Laboratory Tests 11/02/24 12:14 Test 11/02/24 12:14 Range/Units Serum Glucose 229 H 74-106 mg/dL BILLY TURNER STRIKE PLATE ATTACHER November 02, 2024 22:49
[2024-11-02] MEDS ORDERED: DEXTROSE (50%) 50ML SYRG IV PRN (23:00)
[2024-11-03] VITALS (9 sets, daily range): BP systolic 152–199; BP diastolic 66–87; PULSE 75–98; RESP 16–20; TEMP 36.6; O2SAT 94–100
[2024-11-03] MEDS: traMADol HCL 50 MG TAB PO PRN (01:54)
[2024-11-03] MEDS: cloNIDine HCL 0.1 MG TAB PO ONE (04:00)
[2024-11-03] MEDS: HYDROmorphone HCL 2 MG/ML VL/or syr IV PRN (05:05)
[2024-11-03] MEDS: InsuLIN REG 1unit/0.01ml Soln (100units/ml) SC SCH (06:01)
[2024-11-03] MEDS: ACCU-CHEK COMFORT CURVE STRIP VI SCH (06:06)
[2024-11-03 08:06] LABS: Albumin 3.9 g/dL (3.2-4.8); Alkaline Phosphatase 79 U/L (46-116); Anion Gap 10 (5-15); Aspartate Aminotransferase 33 U/L (13-40); BUN/Creatinine Ratio 14.5 (10.0-20.0); Blood Urea Nitrogen 10 mg/dL (9-23); Calcium 10.1 mg/dL (8.7-10.4); Carbon Dioxide 26 mmol/L (20-31); Chloride 103 mmol/L (98-107); Potassium 3.9 mmol/L (3.5-5.1); Sodium 139 mmol/L (136-145)
[2024-11-03 08:07] LABS: Bilirubin, Total 0.8 mg/dL (0.2-1.0)
[2024-11-03 08:08] LABS: Alanine Aminotransferase 43 U/L (7-40); Glucose 202 mg/dL (74-106)
[2024-11-03 08:14] LABS: Basophils # (auto) 0 10 ^3/uL (0-0.2); Basophils % (auto) 0.1 % (0.0-2.0); Eosinophils # (auto) 0 10 ^3/uL (0-0.8); Hematocrit 41.9 % (36.0-46.0); Lymphocytes # (auto) 0.7 10 ^3/uL (0.4-5.4); Lymphocytes % (auto) 10.7 % (10.0-50.0); Mean Corpuscular Hemoglobin 30.7 pg (28.0-32.0); Mean Corpuscular Hgb Conc. 33.4 g/dL (32.0-36.0); Mean Corpuscular Volume 92.1 fL (80.0-100.0); Monocytes # (auto) 0.3 10 ^3/uL (0-1.3); Monocytes % (auto) 5.4 % (0.0-12.0); Neutrophils # (auto) 5.2 10 ^3/uL (1.6-8.6); Neutrophils % (auto) 83.8 % (37.0-80.0); Platelet Count (auto) 114 10^3/uL (140-450); Red Blood Cells 4.55 10^6/uL (4.0-5.20); Red Cell Distribution Width 14.2 % (11.8-14.3); White Blood Cell 6.2 10^3/uL (4.4-10.8)
--- NOTE | 2024-11-03 08:55 | DVHDS2 ---
Discharge Summary Date of Admission November 02, 2024 at 12:39 Date of Discharge: November 02, 2024 Admitting Diagnosis Unstable Angina Anxiety Labs/Diagnostic Data: Laboratory Results Test 11/03/24 07:09 11/02/24 13:21 11/02/24 12:14 White Blood Count 6.2 10^3/uL (4.4-10.8) Red Blood Count 4.55 10^6/uL (4.0-5.20) Hemoglobin 14.0 g/dL (12.2-16.2) Hematocrit 41.9 % (36.0-46.0) Mean Corpuscular Volume 92.1 fL (80.0-100.0) Mean Corpuscular Hemoglobin 30.7 pg (28.0-32.0) Mean Corpuscular Hemoglobin Concent 33.4 g/dL (32.0-36.0) Red Cell Distribution Width 14.2 % (11.8-14.3) Platelet Count 114 10^3/uL (140-450) Mean Platelet Volume 11.7 fL (6.9-10.8) Neutrophils (%) (Auto) 83.8 % (37.0-80.0) Lymphocytes (%) (Auto) 10.7 % (10.0-50.0) Monocytes (%) (Auto) 5.4 % (0.0-12.0) Eosinophils (%) (Auto) 0.0 % (0.0-7.0) Basophils (%) (Auto) 0.1 % (0.0-2.0) Neutrophils # (Auto) 5.2 10 ^3/uL (1.6-8.6) Lymphocytes # (Auto) 0.7 10 ^3/uL (0.4-5.4) Monocytes # (Auto) 0.3 10 ^3/uL (0-1.3) Eosinophils # (Auto) 0 10 ^3/uL (0-0.8) Basophils # (Auto) 0 10 ^3/uL (0-0.2) Nucleated Red Blood Cells 0.0 % Sodium Level 139 mmol/L (136-145) Potassium Level 3.9 mmol/L (3.5-5.1) Chloride Level 103 mmol/L (98-107) Carbon Dioxide Level 26 mmol/L (20-31) Anion Gap 10 (5-15) Blood Urea Nitrogen 10 mg/dL (9-23) Creatinine 0.69 mg/dL (0.550-1.02) Glomerular Filtration Rate Calc 96 mL/min (>90) BUN/Creatinine Ratio 14.5 (10.0-20.0) Serum Glucose 202 mg/dL (74-106) Calcium Level 10.1 mg/dL (8.7-10.4) Total Bilirubin 0.8 mg/dL (0.2-1.0) Aspartate Amino Transferase (AST) 33 U/L (13-40) Alanine Aminotransferase (ALT) 43 U/L (7-40) Alkaline Phosphatase 79 U/L (46-116) Total Protein 7.0 g/dL (5.7-8.2) Albumin 3.9 g/dL (3.2-4.8) Troponin I High Sensitivity 11 ng/L (</=34) Prothrombin Time 12.1 sec (9.3-11.8) Prothrombin Time INR 1.16 (0.9-1.15) Activated Partial Thromboplast Time 26.9 SEC (24.5-34.5) B-Type Natriuretic Peptide 20.61 pg/mL (0-100) Other Laboratory Tests 11/03/24 07:09 Brief Hx & Hospital Course: This is a 64-year-old female that was admitted for unstable angina. Patient states she was previously seen in [place] for similar reasons. Patient stated that she has severe anxiety which causes chest pain. She stated she was given a prescription for Atarax i Patient had anxiety because she could not see her precipitator supervisor doctor Bell. Patient was able to speak to her precipitator supervisor and he sent her to the emergency room for further work up and testing. Dr. Bell spoke with Dr. Gresham who performed an angiogram on November 02, 2024. Coronaries were found to be clear.[facility], which helped her anxiety. She stated she was unable to get this medication with her primary. Patient had High blood pressure post procedure. Patient was kept overnight after angiogram to stabilize blood pressure. Patient states it is her chronic pain and back pain from hospital bed. Patient was given Atarax for anxiety and pain medication. Patient was cleared for discharge by cardiology. Patient was instructed to follow up with her PCP in one week. Operations or Procedures Antigram was performed on November 02, 2024. Condition at Discharge: Stable Final Diagnosis/Problems List Chrst pain- angiogram dne- coronaries clear Discharge Disposition: Home SNF Discharge Will this Physician continue t: [place] of Physician to Continue: Sánchez Fofana DNP Discharge Instruct/Medications Diet: Cardiac 2g Na,low cholest Activity: No Restrictions, As Tolerated Follow Up/Referral: pcp 1 week Arabella 1 week 45 Discharge Statement: "Patient was advised to return to the ER or call 911 if any headaches, dizziness, shortness of breath, chest pain, abdominal pain, bleeding, fevers, or worsening of medical condition. Patient was counseled about treatment plan, medications, possible side effects, patient�verbalized understanding. All questions were answered to the best of my ability. This discharge took greater then 30 minutes in planning, reviewing documentation, counseling the patient, and discussing with other team members." [facility]ESSMENT [facility] BILLY TURNER NP November 03, 2024 08:55
--- NOTE | 2024-11-03 08:56 | ECG ---
[facility] Test Date: 2024-11-02 Test Time: 12:06:57 Pat Name: CHRIS EUBANKS Department: ER Room: 0298T A Gender: F Barge Captain: KETAN : 1960 Requested By: ALIZE MANN Order Number: [id number] Reading MD: Cole Ren Measurements Intervals Morning Sun Rate: 82 P: 44 WA: 182 QRS: 18 QRSD: 87 T: 0 QT: 402 QTc: 470 Interpretive Statements Sinus rhythm LVH with secondary repolarization abnormality Baseline wander in lead(s) V2 Electronically Signed On 11-04-2024 12:45:51 PDT by Cole Ren Please click the below link to view image of tracing.
[2024-11-03] MEDS: PANTOPRAZOLE 40 MG/10 ML VIAL INJ IV ONE (09:33)
[2024-11-03] MEDS: NIFEdipine ER 30 MG TAB PO SCH (09:35)
[2024-11-03] MEDS: ISOSORBIDE MONONITRATE ER 60 MG TAB PO SCH (09:36)
[2024-11-03] MEDS ORDERED: PATIENTS OWN MEDICATION (Isosorbide Mononitrate (Isosorbide Mononitrate Er) 1 TAB) PO SCH (10:00)
[2024-11-03] MEDS: ALBUTEROL SULF 2.5 MG/0.5ML(0.5%) NEB SOLN NEB ONE (11:40)
[2024-11-03 11:52] LABS: Urine Bacteria FEW /hpf (None Seen); Urine Blood Negative /uL (Negative); Urine Clarity Clear (Clear); Urine Color Yellow (Yellow); Urine Mucus FEW (None Seen); Urine Protein, UAD TRACE (Negative); Urine Specific Gravity 1.028 (1.001-1.035); Urine Squamous Epithelial Cell FEW /hpf (<5); Urine Urobilinogen Normal (Negative); Urine WBC 22 /HPF (0-5); Urine pH 5.5 (5.0-9.0)
[2024-11-03] MEDS: hydrOXYzine 25 MG TAB or CAP PO ONE (15:10)
[2024-11-03] MEDS ORDERED: InsuLIN REG 1unit/0.01ml Soln (100units/ml) SC SCH (22:00)
== END 2024-11-03 15:20 | disposition home or self-care (01) | DRG 287 ==
LOC: ER 11:57 → OVERFLOW 12:39 → TELE-WESTW 17:00
PROVIDERS: ADMIT Nurse Practitioner; ATTEND Nurse Practitioner
PROC: 4A023N7 Measurement of Cardiac Sampling and Pressure, Left Heart, Percutaneous Approach (ICD-10-PCS; principal; 2024-11-02)
PROC: B211YZZ Fluoroscopy of Multiple Coronary Arteries using Other Contrast (ICD-10-PCS; 2024-11-02)
DX: I20.0 Unstable angina (principal); I13.0 Hypertensive heart and chronic kidney disease with heart failure and stage 1 through stage 4 chronic kidney disease, or unspecified chronic kidney disease; G47.33 Obstructive sleep apnea (adult) (pediatric); E66.9 Obesity, unspecified; E11.22 Type 2 diabetes mellitus with diabetic chronic kidney disease; N18.9 Chronic kidney disease, unspecified; J44.9 Chronic obstructive pulmonary disease, unspecified; I50.9 Heart failure, unspecified; Z88.0 Allergy status to penicillin; I25.2 Old myocardial infarction; Z88.6 Allergy status to analgesic agent; Z86.73 Personal history of transient ischemic attack (TIA), and cerebral infarction without residual deficits; Z79.84 Long term (current) use of oral hypoglycemic drugs; Z79.4 Long term (current) use of insulin; Z79.82 Long term (current) use of aspirin; Z79.899 Other long term (current) drug therapy; Z90.710 Acquired absence of both cervix and uterus; Z98.891 History of uterine scar from previous surgery; Z91.041 Radiographic dye allergy status; Z85.3 Personal history of malignant neoplasm of breast; Z68.34 Body mass index [BMI] 34.0-34.9, adult; I51.3 Intracardiac thrombosis, not elsewhere classified; I16.0 Hypertensive urgency; F41.9 Anxiety disorder, unspecified
CPT/HCPCS: 36415; 71045; 80048; 80053; 81001; 82962; 83880; 84484; 85025; 85610; 85730; 93005; 93458; 94640; 96374; 96375; 99152; 99291; G0378; J1815; J2250; J2405; J2470; Q9967